=== PATIENT | female | born 1955 | race Caucasian/White ===

== ENCOUNTER 2016-12-31 10:33 | Observation (INO) | payer MEDICARE, OTHER ==
[~2016-12-31] VITALS: Ht 157.5 cm; Wt 77.3 kg
[2016-12-31] VITALS (9 sets, daily range): BP systolic 107–147; BP diastolic 58–84; PULSE 67–110; RESP 16–21; TEMP 97.5–98.8; O2SAT 93–99
[~2016-12-31 10:33] MED LIST: ALBU0.086 NEB; ALBU8I INH; AMLO5TAB22 PO; ATOR20TA PO; CLON.5 PO; GABA600T PO; GLYB1TAB51 PO; MAGN500T4 PO; METF-324 PO; NITR.4 SL; PERC5TAB12 PO; PROT40TA PO; ROPI.25 PO; TOPR25TA2 PO; Z.0.OXYGEN INH
[2016-12-31] MEDS ORDERED: SODIUM CHLORIDE 0.9% FLUSH 5 ML FLUSH IVF PRN ×2 (11:00→15:00)
[2016-12-31] MEDS ORDERED: MORPHINE SULFATE 4 MG/ML INJ IV PUSH ONE ×2 (11:00→13:15)
--- NOTE | 2016-12-31 11:09 | PD ---
HPI Chief Complaint: Chest Pain Time Seen by Provider: 10:52 Travel History International Travel<30 days: No Contact w/Intl Traveler<30days: No Traveled to known affect area: No History of Present Illness HPI This is a 61-year-old female who presents to the emergency department with chest pain that started last evening overnight, constant, worsening throughout today, involving the left side of her test, constant, squeezing, associated with shortness of breath, nausea and diaphoresis. Patient has a history of familial hypertriglyceridemia and she says that all 3 of her brothers have had heart attacks in their 60s. She says she had a normal stress test one year ago in the setting of similar pain. She does have a [id number] smoking history as well as diabetes and high blood pressure. 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) Cardiac Catheterization: Yes Cardiovascular Problems: Yes (MA ) High Cholesterol: Yes Chemotherapy: Yes (2014) Chest Pain: Yes Congestive Heart Failure: No COPD: Yes (2L oxygen at NIGHT) Cerebrovascular Accident: No Diabetes: Yes (TYPE 2 ) Patient Takes Glucophage: Yes (12/29/16) Diminished Hearing: No Endocrine: Yes Gastrointestinal Disorders: Yes (ESOPHAGEAL STRICTURE "DILATED") GERD: Yes Genitourinary: Yes Headaches: No Hepatitis: Yes (HEP C) Hiatal Hernia: No Herniated Disk: Yes Hypertension: Yes Immune Disorder: No Implanted Vascular Access Dvce: Yes (R CHEST POWER PORT) Kidney Stones: No Musculoskeletal: Yes Neurologic: No Psychiatric: Yes (PANIC ATTACKS) Reproductive: No Respiratory: Yes (COPD) Integumentary: Yes (HX: MRSA 2006, CLEAR IN 2014) Immunizations Current: Yes Migraines: No Myocardial Infarction: Yes (2005) Pneumonia: Yes Radiation Therapy: No Renal Failure: No Seizures: No Sickle Cell Disease: No Sleep Apnea: No Thyroid Disease: No Ulcer: Yes Tetanus Vaccination: < 5 Years Influenza Vaccination: Yes Menopausal: Yes : 1 Para: 1 Miscarriage: 0 : 0 Past Surgical History Abdominal Surgery: Yes (appy) AICD: No Appendectomy: Yes Arteriovenous Shunt: No Cardiac Surgery: No Cholecystectomy: No Ear Surgery: No Endocrine Surgery: No Eye Surgery: No Genitourinary Surgery: No Gynecologic Surgery: Yes (lumpectomy-benign left breast, HYSTERECTOMY) Hysterectomy: Yes Insulin Pump: No Joint Replacement: No Neurologic Surgery: No Oral Surgery: No Pacemaker: No Thoracic Surgery: Yes (LEFT UPPER LOBECTOMY) Other Surgery: Yes (LEFT BREAST LUMPECTOMY) Social History Alcohol Use: No Tobacco Use: No Substance Use: No Allergies-Medications (Allergen,Severity, Reaction): Coded Allergies: *MDRO Multi-Drug Resistant Organism (Verified Allergy, Unknown, 12/31/16) MRSA patient reports history from 2006 MRSA PCR Screen negative 07/04/15. Reported Meds & Prescriptions Reported Meds & Active Scripts Active Reported Ventolin Hfa 18 GM Inh (Albuterol Sulfate) 90 Mcg/Act Aer 2 Puff INH Q4-6H PRN Ropinirole 0.5 Mg Tab 0.5 Mg PO HS PRN Quetiapine (Quetiapine Fumarate) 25 Mg Tab 50-75 Mg PO HS Pantoprazole (Pantoprazole Sodium) 40 Mg Tab 40 Mg PO DAILY PRN Percocet (Oxycodone-Acetaminophen) 5-325 mg Tab 1 Tab PO Q5-6HR PRN Morphine ER (Morphine Sulfate) 30 Mg Tab 30 Mg PO Q12HR Nitroglycerin SL (Nitroglycerin) 0.4 Mg Subl 0.4 Mg SL DIRECTED PRN ONE TABLET UNDER THE TONGUE NEEDED FOR CHEST PAIN, MAY REPEAT EVERY FIVE MINUTES FOR A TOTAL OF 3 DOSES OR CALL 911 IF NO RELIEF Multi Vitamin (Multiple Vitamin) 1 Tab Tab 1 Tab PO DAILY Metoprolol Tartrate 50 Mg Tab 50 Mg PO BID Metformin (Metformin HCl) 1,000 Mg Tab 1,000 Mg PO BIDPC With meals Ipratropium Neb (Ipratropium [place]) 0.5 Mg/2.5 Ml Amp 0.5 Mg NEB TID NEB PRN Glimepiride 2 Mg Tab 2 Mg PO BID Gabapentin 600 Mg Tab 600 Mg PO BID Flonase Allergy Relief Nasal [place] (Fluticasone Nasal [place]) 50 Mcg/Act [place] 2 [place] EACH NARE DAILY PRN Fenofibrate 145 Mg Tab 145 Mg PO DAILY Clonazepam 0.5 Mg Tab 0.5 Mg PO HS Calcitonin ([place]) Nasal [place] (Calcitonin [place]) 200 Units/Act Soln 1 [place] NASAL DAILY ALTERNATE NARE Alternate nostrils daily. Aspirin DR (Aspirin) 81 Mg Tabdr 81 Mg PO DAILY Amlodipine (Amlodipine Besylate) 5 Mg Tab 5 Mg PO DAILY Albuterol Neb (Albuterol Sulfate) 2.5 Mg/3 Ml Neb 2.5 Mg NEB Q8HR NEB PRN While awake Review of Systems Except as stated in HPI: all other systems reviewed are Neg Physical Exam Narrative GENERAL: Uncomfortable appearing. SKIN: Warm and dry. HEAD: Atraumatic. Normocephalic. EYES: Pupils equal and round. No injection or drainage. ENT: Moist mucous membranes NECK: Trachea midline. CARDIOVASCULAR: Regular rate and rhythm. No murmur appreciated. RESPIRATORY: Clear to auscultation. Breath sounds equal bilaterally. GASTROINTESTINAL: Abdomen soft, non-tender, nondistended. MUSCULOSKELETAL: No obvious deformities. NEUROLOGICAL: Awake and alert. No obvious cranial nerve deficits. Moving all extremities. PSYCHIATRIC: Appropriate mood and affect; insight and judgment normal. Data Data Last Documented VS Vital Signs Date Time Temp Pulse Resp B/P Pulse Ox O2 Delivery O2 Flow Rate FiO2 12/31/16 12:00 96 18 134/78 99 Nasal Cannula 2 12/31/16 10:45 98.5 Orders Electrocardiogram (12/31/16 10:52) Complete Blood Count With Diff (12/31/16 10:52) Comprehensive Metabolic Panel (12/31/16 10:52) Magnesium (Mg) (12/31/16 10:52) Prothrombin Time / Inr (Pt) (12/31/16 10:52) Act Partial Throm Time (Ptt) (12/31/16 10:52) Troponin I (12/31/16 10:52) Chest, Single Ap (12/31/16 10:52) Ecg Monitoring (12/31/16 10:52) Bilateral Bp Monitoring (12/31/16 10:52) Iv Access Insert/Monitor (12/31/16 10:52) Oximetry (12/31/16 10:52) Oxygen Administration (12/31/16 10:52) Sodium Chloride 0.9% Flush (Ns Flush) (12/31/16 11:00) Morphine Inj (Morphine Inj) (12/31/16 11:00) Lipase (12/31/16 10:53) Nitroglycerin 2% Oint (Nitroglycerin 2% (12/31/16 11:15) Ct Pulmonary Angiogram (12/31/16 ) Morphine Inj (Morphine Inj) (12/31/16 13:15) Iohexol 350 Inj (Omnipaque 350 Inj) (12/31/16 14:15) Admit Order (Ed Use Only) (12/31/16 14:49) Labs Laboratory Tests Test 12/31/16 11:00 White Blood Count 10.6 TH/MM3 Red Blood Count 4.85 MIL/MM3 Hemoglobin 15.3 GM/DL Hematocrit 43.9 % Mean Corpuscular Volume 90.5 FL Mean Corpuscular Hemoglobin 31.6 PG Mean Corpuscular Hemoglobin 34.9 % Concent Red Cell Distribution Width 14.1 % Platelet Count 246 TH/MM3 Mean Platelet Volume 8.3 FL Neutrophils (%) (Auto) 61.9 % Lymphocytes (%) (Auto) 27.0 % Monocytes (%) (Auto) 7.2 % Eosinophils (%) (Auto) 3.2 % Basophils (%) (Auto) 0.7 % Neutrophils # (Auto) 6.6 TH/MM3 Lymphocytes # (Auto) 2.9 TH/MM3 Monocytes # (Auto) 0.8 TH/MM3 Eosinophils # (Auto) 0.3 TH/MM3 Basophils # (Auto) 0.1 TH/MM3 CBC Comment DIFF FINAL Differential Comment Prothrombin Time 10.7 SEC Prothromb Time International 1.0 RATIO Ratio Activated Partial 25.0 SEC Thromboplast Time Sodium Level 139 MEQ/L Potassium Level 4.0 MEQ/L Chloride Level 105 MEQ/L Carbon Dioxide Level 26.7 MEQ/L Anion Gap 7 MEQ/L Blood Urea Nitrogen 16 MG/DL Creatinine 0.90 MG/DL Estimat Glomerular Filtration 63 ML/MIN Rate Random Glucose 177 MG/DL Calcium Level 8.8 MG/DL Magnesium Level 1.7 MG/DL Total Bilirubin 0.3 MG/DL Aspartate Amino Transf 16 U/L (AST/SGOT) Alanine Aminotransferase 32 U/L (ALT/SGPT) Alkaline Phosphatase 108 U/L Troponin I LESS THAN 0.02 NG/ML Total Protein 7.0 GM/DL Albumin 3.5 GM/DL Lipase 263 U/L [facility] Medical Decision Making Medical Screen Exam Complete: Yes Emergency Medical Condition: Yes Interpretation(s) Afebrile, tachycardic, normotensive No leukocytosis Electrolytes are reassuring Troponin is normal Lipase is 263 Last 24 hours Impressions Chest X-Ray 12/31/16 1052 Signed Impressions: Service Date/Time: Saturday, December 31, 2016 10:57 - CONCLUSION: No acute disease. Ayo Guardado MD CT Angiography 12/31/16 0000 Signed Impressions: Service Date/Time: Saturday, December 31, 2016 14:11 - CONCLUSION: 1. No evidence for pulmonary embolism. 2. Minimal round glass densities in the anterior right upper lobe and posterior left upper lobe could be infectious or inflammatory. 3. Emphysema with nodules in the right lower lobe measuring 11 x 7 mm and 8 mm. These appear slightly more prominent on current study. 4. Left upper lobectomy. Alin Nguyễn MD Differential Diagnosis Acute coronary syndrome, pulmonary embolism, cancer, pancreatitis Narrative Course Is a 61-year-old female who presents to the emergency department with left- sided chest pain that started last afternoon and has been worsening. EKG demonstrated some ST depressions in V1 through V3. Posterior leads are normal with no sign of posterior myocardial infarction. These ST depressions are new compared to old EKG. She was placed on a monitor and an IV was established. She was given aspirin by EMS. CT pulmonary injury gram was obtained given the patient's history of malignancy which did not demonstrate an etiology of the patient's symptoms. I think the patient requires serial cardiac enzymes and evaluation and the chest pain center given her new EKG findings and description of symptoms. Diagnosis Primary Impression: Chest pain Qualified Code: R07.9 - Chest pain, unspecified type Admitting Information Admitting Physician Requests: Eunice Huynh MD Dec 31, 2016 11:09
[2016-12-31] MEDS ORDERED: NITROGLYCERIN 2% OINT 1 GM PACKET TOPICAL ONE (11:15)
--- NOTE | 2016-12-31 11:26 | RADRPT ---
EXAM DATE/TIME: 12/31/2016 10:57 [facility] COMPARISON: CHEST SINGLE AP, July 08, 2016, 23:19. INDICATIONS : Chest pain. MEDICAL HISTORY : Chronic obstructive pulmonary disease. Carcinoma, lung. Chemotherapy SURGICAL HISTORY : None. ENCOUNTER: Initial ACUITY: 1 day PAIN SCORE: 6/10 LOCATION: Bilateral chest FINDINGS: A single view of the chest demonstrates the lungs to be symmetrically aerated without evidence of mas s, infiltrate or effusion. The cardiomediastinal contours are unremarkable. Osseous structures are intact. There is an old healed left-sided rib fracture. There are postsurgical changes in the left hi lum. There are multiple overlying electrocardiogram leads. There is stable slight blunting of the lef t lateral costophrenic angle. CONCLUSION: No acute disease. Ayo Guardado MD on December 31, 2016 at 11:24 Board Certified Radiologist. This report was verified electronically.
[2016-12-31 11:28] LABS: AUTOMATED NEUTROPHIL # 6.6 TH/MM3 (1.8-7.7); BASOPHIL # 0.1 TH/MM3 (0-0.2); BASOPHIL % 0.7 % (0.0-2.0); EOSINOPHIL # 0.3 TH/MM3 (0-0.4); EOSINOPHIL % 3.2 % (0.0-4.0); HEMATOCRIT 43.9 % (35.0-46.0); HEMO FLAGS DIFF FINAL; LYMPHOCYTE # 2.9 TH/MM3 (1.0-4.8); MEAN CELL VOLUME 90.5 FL (80.0-100.0); MEAN CORPUSCULAR HEMOGLOBIN 31.6 PG (27.0-34.0); MEAN CORPUSCULAR HGB CONC 34.9 % (32.0-36.0); MONO % 7.2 % (0.0-8.0); NEUT % 61.9 % (16.0-70.0); PLATELET COUNT 246 TH/MM3 (150-450); RED BLOOD COUNT 4.85 MIL/MM3 (4.00-5.30); RED CELL DISTRIBUTION WIDTH 14.1 % (11.6-17.2); WHITE BLOOD COUNT 10.6 TH/MM3 (4.0-11.0)
[2016-12-31 11:39] LABS: PROTHROMBIN TIME - PATIENT 10.7 SEC (9.8-11.6)
[2016-12-31 11:45] LABS: ANION GAP 7 MEQ/L (5-15); AST (GOT) 16 U/L (15-37); BICARBONATE 26.7 MEQ/L (21.0-32.0); BLOOD UREA NITROGEN 16 MG/DL (7-18); CHLORIDE 105 MEQ/L (98-107); GLOMERULAR FILTRATION RATE 63 ML/MIN (>89); MAGNESIUM 1.7 MG/DL (1.5-2.5); SODIUM (NA) 139 MEQ/L (136-145)
[2016-12-31] MEDS ORDERED: ASPI81TA5 PO (11:45)
[2016-12-31] MEDS ORDERED: ALBU0.08 NEB (11:45)
[2016-12-31] MEDS ORDERED: AMLO5TAB2 PO (11:45)
[2016-12-31 11:50] LABS: ALKALINE PHOSPHATASE 108 U/L (45-117); ALT (GPT) 32 U/L (10-53); TOTAL BILIRUBIN ADULT 0.3 MG/DL (0.2-1.0)
[2016-12-31] MEDS ORDERED: CALC200S NASAL (11:50)
[2016-12-31] MEDS ORDERED: CLON0.5T PO (11:52)
[2016-12-31] MEDS ORDERED: FLUT1SPR5 EACH NARE (11:54)
[2016-12-31] MEDS ORDERED: FENO145T2 PO (11:54)
[2016-12-31] MEDS ORDERED: GABA600T PO (12:03)
[2016-12-31] MEDS ORDERED: IPRA0.02 NEB (12:03)
[2016-12-31] MEDS ORDERED: GLIM2TAB PO (12:03)
[2016-12-31] MEDS ORDERED: METF1000 PO (12:03)
[2016-12-31] MEDS ORDERED: MULT-135 PO (12:11)
[2016-12-31] MEDS ORDERED: MORP1TAB25 PO (12:11)
[2016-12-31] MEDS ORDERED: METO50TA PO (12:11)
[2016-12-31] MEDS ORDERED: NITR1SUB3 SL (12:11)
[2016-12-31] MEDS ORDERED: PANT40TA3 PO (12:16)
[2016-12-31] MEDS ORDERED: QUET1TAB7 PO (12:16)
[2016-12-31] MEDS ORDERED: PERC5TAB12 PO (12:16)
[2016-12-31] MEDS ORDERED: VENTAER INH (12:18)
[2016-12-31] MEDS ORDERED: ROPI0.5T PO (12:18)
[2016-12-31] MEDS ORDERED: IOHEXOL 350 MG/ML 10 ML VIAL (for RAD DIAG) IV ONE (14:15)
--- NOTE | 2016-12-31 14:42 | RADRPT ---
EXAM DATE/TIME: 12/31/2016 14:11 [facility] COMPARISON: CT PULMONARY ANGIOGRAM, July 03, 2015, 19:48. INDICATIONS : Left upper chest pain. Short of breath. IV CONTRAST: 75 cc Omnipaque 350 (iohexol) IV RADIATION DOSE: 23.21 CTDIvol (mGy) MEDICAL HISTORY : Cardiovascular disease. Diabetes mellitus type 2. Carcinoma, lung.Hypertension. Hepatitis C. SURGICAL HISTORY : Appendectomy. Hysterectomy.Lobectomy. ENCOUNTER: Initial ACUITY: 1 day PAIN SCALE: 8/10 LOCATION: Left chest TECHNIQUE: Volumetric scanning of the chest was performed using a pulmonary embolism protocol MIP images were re constructed. Using automated exposure control and adjustment of the mA and/or kV according to patien t size, radiation dose was kept as low as reasonably achievable to obtain optimal diagnostic quality images. FINDINGS: PULMONARY ARTERIES: No filling defects are seen in the pulmonary arteries through the segmental level. LUNGS: There is no consolidation or pneumothorax . Nodular density in the right lower lobe abutting the post erior pleura measures 11 x 7 mm. Adjacent nodule measures 8 mm. There is mild emphysema. Posterior to changes of left upper lobectomy. Minimal ground glass densities in the anterior right upper lobe. PLEURAE: There is no pleural thickening or pleural effusion. MEDIASTINUM: There is good visualization of the great vessels of the middle mediastinum. No evidence of mediastin al or hilar adenopathy/mass. MUSCULOSKELETAL: Within normal limits for patient age. MISCELLANEOUS: The visualized upper abdominal organs demonstrate no acute abnormality. CONCLUSION: 1. No evidence for pulmonary embolism. 2. Minimal round glass densities in the anterior right upper lobe and posterior left upper lobe could be infectious or inflammatory. 3. Emphysema with nodules in the right lower lobe measuring 11 x 7 mm and 8 mm. These appear slightly more prominent on current study. 4. Left upper lobectomy. Alin Nguyễn MD on December 31, 2016 at 14:36 Board Certified Radiologist. This report was verified electronically.
[2016-12-31] MEDS ORDERED: NITROGLYCERIN 0.4 MG SL 25 TABS/BTL SL PRN (15:00)
[2016-12-31] MEDS ORDERED: ONDANSETRON HCL 4 MG/2 ML VIAL IV PRN (15:00)
[2016-12-31] MEDS ORDERED: ACETAMINOPHEN 500 MG CPLT PO PRN (15:00)
[2016-12-31] MEDS ORDERED: DEXTROSE 50% IN WATER 50 ML VIAL(D50) IV PUSH PRN (16:30)
[2016-12-31] MEDS ORDERED: GLUCAGON 1 MG/ML VIAL OTHER PRN (16:30)
[2016-12-31 16:37] LABS: CREATINE KINASE 50 U/L (26-192)
[2016-12-31] MEDS ORDERED: PANTOPRAZOLE SOD 40 MG DELAYED RELEASE TAB PO PRN (16:45)
[2016-12-31] MEDS ORDERED: RESP: ALBUTEROL 2.5 MG/3 ML NEB (PRN) NEB (17:15)
[2016-12-31] MEDS ORDERED: RESP: IPRATROPIUM 0.5 MG/2.5 ML NEB NEB PRN (17:15)
[2016-12-31] MEDS: MULTIVITAMIN TAB PO SCH (17:27)
[2016-12-31] MEDS: FENOFIBRATE 145 MG TAB PO SCH (17:27)
[2016-12-31] MEDS: amLODIPine BESYLATE 5 MG TAB PO SCH (17:27)
[2016-12-31] MEDS ORDERED: oxyCODONE/ACETAMINOPHEN 5 MG/325 MG TAB PO PRN (17:45)
--- NOTE | 2016-12-31 17:54 | HHI.HP ---
HPI Primary Care Physician Donnell Paul, PhD, MD Chief Complaint Chest pain History of Present Illness 61-year-old female presents with chest discomfort that started last p.m. Was unable to sleep due to chest pain. Continue to have chest discomfort throughout morning then developed a quick cramp-like squeeze in her left anterior chest and under her breasts. Severity was a 10 out of 10. She took 2 nitroglycerin tablets and 2 baby aspirin and called EMS. Associated symptoms included nausea, no shortness of breath or diaphoresis. Total duration of severe chest pain lasted 20 minutes. Continues to have discomfort rated 6 out of 10. No known precipitating factors or relieving factors. Nitroglycerin did not help. Breathing makes pain worse as well as certain movements. Similar chest pain and had a stress test in June 2016 which was unremarkable. Review of Systems General: Fatigue since October. [place] weak today. No fever or chills. Treated for pneumonia in October. No recent illness or change in appetite HEENT: No TAVARES, no vision changes, no nasal congestion or drainage, no dysphasia CV: Chest discomfort as stated above. Continues to have chest discomfort rated 6 out of 10. Denies palpitations, intermittent leg pain with walking, poor dizziness RESP: Lung cancer in remission, left upper lobectomy. Home O2/2 L half daily at bedtime and when necessary. No SOB, cough, wheeze, hemoptysis GI: No nausea, vomiting. Reports diarrhea since Thursday, 4 loose stools today, was seen in urgent care and given how patient stool kit to complete. She is concerned about c-diff. Denies abdominal pain or distention, melena, blood in the stool. No change in appetite, no unintentional weight gain or weight loss : No dysuria, urgency, frequency EXT: No lower leg edema, no parathesias MS: No discomfort or change in ROM NEURO: No change in memory, dizziness, difficulty with balance, LOC, motor/ sensory deficits PSYCH: No anxiety, depression SKIN: No rashes, no concerning lesions Past Family Social History Allergies: Coded Allergies: *MDRO Multi-Drug Resistant Organism (Verified Allergy, Unknown, 12/31/16) MRSA patient reports history from 2006 MRSA PCR Screen negative 07/04/15. Past Medical History Diabetes2 GERD Lung cancerremission 09/28 Pulmonary embolism Hypertension Hyperlipidemia COPDhome O2 at 2 L daily at bedtime and when necessary Anxiety and depression Bipolar Diverticulitis Cervical cancer 1979 Esophageal stricture with dilatation Diverticulitis Right wrist fracture Past Surgical History Left upper lobectomy Appendectomy Hysterectomy In the lobectomy of her left breast Reported Medications Reported Meds & Active Scripts Active Reported Ventolin Hfa 18 GM Inh (Albuterol Sulfate) 90 Mcg/Act Aer 2 Puff INH Q4-6H PRN Ropinirole 0.5 Mg Tab 0.5 Mg PO HS PRN Quetiapine (Quetiapine Fumarate) 25 Mg Tab 50-75 Mg PO HS Pantoprazole (Pantoprazole Sodium) 40 Mg Tab 40 Mg PO DAILY PRN Percocet (Oxycodone-Acetaminophen) 5-325 mg Tab 1 Tab PO Q5-6HR PRN Morphine ER (Morphine Sulfate) 30 Mg Tab 30 Mg PO Q12HR Nitroglycerin SL (Nitroglycerin) 0.4 Mg Subl 0.4 Mg SL DIRECTED PRN ONE TABLET UNDER THE TONGUE NEEDED FOR CHEST PAIN, MAY REPEAT EVERY FIVE MINUTES FOR A TOTAL OF 3 DOSES OR CALL 911 IF NO RELIEF Multi Vitamin (Multiple Vitamin) 1 Tab Tab 1 Tab PO DAILY Metoprolol Tartrate 50 Mg Tab 50 Mg PO BID Metformin (Metformin HCl) 1,000 Mg Tab 1,000 Mg PO BIDPC With meals Ipratropium Neb (Ipratropium [place]) 0.5 Mg/2.5 Ml Amp 0.5 Mg NEB TID NEB PRN Glimepiride 2 Mg Tab 2 Mg PO BID Gabapentin 600 Mg Tab 600 Mg PO BID Flonase Allergy Relief Nasal [place] (Fluticasone Nasal [place]) 50 Mcg/Act [place] 2 [place] EACH NARE DAILY PRN Fenofibrate 145 Mg Tab 145 Mg PO DAILY Clonazepam 0.5 Mg Tab 0.5 Mg PO HS Calcitonin ([place]) Nasal [place] (Calcitonin [place]) 200 Units/Act Soln 1 [place] NASAL DAILY ALTERNATE NARE Alternate nostrils daily. Aspirin DR (Aspirin) 81 Mg Tabdr 81 Mg PO DAILY Amlodipine (Amlodipine Besylate) 5 Mg Tab 5 Mg PO DAILY Albuterol Neb (Albuterol Sulfate) 2.5 Mg/3 Ml Neb 2.5 Mg NEB Q8HR NEB PRN While awake Active Ordered Medications Current Medications Medications (Trade) Dose Ordered Sig/Ney Route Start Time Stop Time Status Last Admin (Tylenol) 500 mg Q4H PRN PO 12/31/16 15:00 (Zofran Inj) 4 mg Q6H PRN IV 12/31/16 15:00 (Nitrostat Sl) 0.4 mg Q5M PRN SL 12/31/16 15:00 (Aspirin) 325 mg DAILY PO 01/01/17 09:00 (D50w (Vial) Inj) 25 ml UNSCH PRN IV PUSH 12/31/16 16:30 (Glucagon Inj) 1 mg UNSCH PRN OTHER 12/31/16 16:30 (Norvasc) 5 mg DAILY PO 12/31/16 17:00 12/31/16 17:27 (Tricor) 145 mg DAILY PO 12/31/16 17:00 12/31/16 17:27 (Neurontin) 600 mg BID PO 12/31/16 21:00 (Theragran) 1 tab DAILY PO 12/31/16 17:00 12/31/16 17:27 (Protonix) 40 mg DAILY PRN PO 12/31/16 16:45 (Lopressor) 50 mg BID PO 12/31/16 21:00 (Requip) 0.5 mg HS PRN PO 12/31/16 16:45 (SEROquel) 50 mg HS PO 12/31/16 21:00 Family History 1 brother at age 61 from a heart attack, another brother from massive CVA at age 61, another brother is living and has a pacemaker and defibrillator. Mother had COPD, hypertension and diabetes she has . Father at age 37 from a motor vehicle accident. Social History She is a remote smoker quit May 2015. He smokes since age 15 1-1/2 pack of cigarettes until quitting. She denies any alcohol or illegal drug use. Has known hypertension, diabetes, and hyperlipidemia stating her triglyceride level is always elevated. She is a and is disabled. PAST CARDIAC TESTING Lexiscan completed 07/10/16 was negative for ischemia, ejection fraction greater than 70% [place] scan completed 07/04/16 was negative for ischemia Has never had a cardiac catheterization. Follows with Dr. Krishna. Physical Exam Vital Signs Vital Signs Date Time Temp Pulse Resp B/P Pulse Ox O2 Delivery O2 Flow Rate FiO2 12/31/16 16:00 110 18 147/78 97 Nasal Cannula 2 12/31/16 14:00 106 18 107/61 97 Nasal Cannula 2 12/31/16 12:00 96 18 134/78 99 Nasal Cannula 2 12/31/16 10:55 97 Nasal Cannula 2 12/31/16 10:45 108 18 125/69 97 Nasal Cannula 2 12/31/16 10:45 98.5 105 18 135/73 95 12/31/16 10:45 106 18 96 Room Air Physical Exam GENERAL: Alert WN, WD, NAD, pleasant, female who appears older than her stated age HEAD: NC, AT EYES: Sclera clear, conjunctiva without injection, pupils equal and round ENT: Mucous membranes pink and moist NECK: Supple, no masses, trachea midline CV: Tachycardic regular rhythm, without murmur, rub, gallop, no JVD, S1-S2 no S3 -S4. No carotid bruits RESP: Clear lungs throughout bilateral, absent breath sounds LAVELL. no crackles, wheeze, rhonchi, symmetrical chest rise, nonlabored, able to speak in full sentences, O2 placed 2 L nasal cannula in place ABD: Soft, mildly tender with palpation left upper quadrant, ND, no masses, positive bowel tones, negative Short's BACK: No CVAT, no scoliosis EXT: Pulses +24, no dependent edema MS: Normal tone 4 extremities, nontender, no obvious deformities, full range of motion NEURO: CN II through CN XII grossly intact, motor strength 5/5, gait WNL PSYCH: A+O 3, pleasant affect, appropriate speech, appropriate mood and affect , insight and judgment SKIN: Normal turgor, normal texture, no lesions, no rashes Laboratory Laboratory Tests Test 12/31/16 12/31/16 11:00 15:00 White Blood Count 10.6 Red Blood Count 4.85 Hemoglobin 15.3 Hematocrit 43.9 Mean Corpuscular Volume 90.5 Mean Corpuscular Hemoglobin 31.6 Mean Corpuscular Hemoglobin 34.9 Concent Red Cell Distribution Width 14.1 Platelet Count 246 Mean Platelet Volume 8.3 Neutrophils (%) (Auto) 61.9 Lymphocytes (%) (Auto) 27.0 Monocytes (%) (Auto) 7.2 Eosinophils (%) (Auto) 3.2 Basophils (%) (Auto) 0.7 Neutrophils # (Auto) 6.6 Lymphocytes # (Auto) 2.9 Monocytes # (Auto) 0.8 Eosinophils # (Auto) 0.3 Basophils # (Auto) 0.1 CBC Comment DIFF FINAL Differential Comment Prothrombin Time 10.7 Prothromb Time International 1.0 Ratio Activated Partial 25.0 Thromboplast Time Sodium Level 139 Potassium Level 4.0 Chloride Level 105 Carbon Dioxide Level 26.7 Anion Gap 7 Blood Urea Nitrogen 16 Creatinine 0.90 Estimat Glomerular Filtration 63 Rate Random Glucose 177 Calcium Level 8.8 Magnesium Level 1.7 Total Bilirubin 0.3 Aspartate Amino Transf 16 (AST/SGOT) Alanine Aminotransferase 32 (ALT/SGPT) Alkaline Phosphatase 108 Troponin I LESS THAN 0.02 LESS THAN 0.02 Total Protein 7.0 Albumin 3.5 Lipase 263 Total Creatine Kinase 50 Result Diagram: 12/31/16 1100 12/31/16 1100 Imaging Last Impressions Chest X-Ray 12/31/16 1052 Signed Impressions: Service Date/Time: Saturday, December 31, 2016 10:57 - CONCLUSION: No acute disease. Ayo Guardado MD CT Angiography 12/31/16 0000 Signed Impressions: Service Date/Time: Saturday, December 31, 2016 14:11 - CONCLUSION: 1. No evidence for pulmonary embolism. 2. Minimal round glass densities in the anterior right upper lobe and posterior left upper lobe could be infectious or inflammatory. 3. Emphysema with nodules in the right lower lobe measuring 11 x 7 mm and 8 mm. These appear slightly more prominent on current study. 4. Left upper lobectomy. Alin Nguyễn MD Course First EKG Normal sinus rhythm, left axis deviation, Q waves in lead 3 and aVF, nonspecific ST changes Assessment and Plan Assessment and Plan #1 Chest painpatient has been admitted to the chest pain center. She will undergo serial EKGs, cardiac enzymes, and monitored overnight. She was seen and evaluated by Dr. Louie Phipps. Discussed with patient that if she is ruled out she will complete a chemical stress test in the a.m. She is agreeable to this plan of care. Further disposition to follow results of EKGs, labs, and possible stress test. #2 DiabetesSSI. Hold oral anti-glycemic #3 COPDrespiratory treatments every 2 hours when necessary, O2 2 L nasal cannula as needed for shortness of breath #4 Hypertriglyceridemiacontinue fenofibrate, upon discharge may add fish oil 1000 mg 3 times a day #5 Hypertensionreorder amlodipine and metoprolol, monitor overnight #6 Chronic painreorder morphine extended release and when necessary Percocet Code Status Full code Siobhan Gallardo Dec 31, 2016 17:54
[2016-12-31 18:59] LABS: CREATINE KINASE 50 U/L (26-192)
[2016-12-31] MEDS ORDERED: clonazePAM 0.5 MG TAB PO SCH (21:00)
[2016-12-31] MEDS ORDERED: QUEtiapine FUMARATE 25 MG TAB PO SCH (21:00)
[2016-12-31] MEDS: SODIUM CHLORIDE 0.9% FLUSH 5 ML FLUSH IVF SCH (22:16)
[2016-12-31] MEDS: METOPROLOL TARTRATE 50 MG TAB PO SCH (22:17)
[2016-12-31] MEDS: GABAPENTIN 300 MG CAP PO SCH (22:17)
[2016-12-31] MEDS: MORPHINE SULFATE 30 MG CONTROLLED RELEASE TAB PO SCH (22:18)
[2016-12-31] MEDS: INSULIN ASPART SUPPLEMENTAL SCALE SQ SCH (22:20)
[2017-01-01] VITALS (7 sets, daily range): BP systolic 107–116; BP diastolic 63–73; PULSE 71–82; RESP 19–22; TEMP 97.5–98.8; O2SAT 93–99
[2017-01-01] MEDS: INSULIN ASPART SUPPLEMENTAL SCALE SQ SCH (06:47)
[2017-01-01] MEDS ORDERED: REGADENOSON INJ 0.4 MG/5 ML SYR ONE (08:56)
[2017-01-01] MEDS ORDERED: ASPIRIN 325 MG TAB PO SCH (09:00)
[2017-01-01] MEDS ORDERED: AMINOPHYLLINE INJ 250 MG/10 ML VIAL ONE (10:04)
[2017-01-01] MEDS: MORPHINE SULFATE 30 MG CONTROLLED RELEASE TAB PO SCH (10:45)
[2017-01-01] MEDS: METOPROLOL TARTRATE 50 MG TAB PO SCH (10:45)
[2017-01-01] MEDS: FENOFIBRATE 145 MG TAB PO SCH (10:45)
[2017-01-01] MEDS: SODIUM CHLORIDE 0.9% FLUSH 5 ML FLUSH IVF SCH (10:45)
[2017-01-01] MEDS: amLODIPine BESYLATE 5 MG TAB PO SCH (10:45)
[2017-01-01] MEDS: MULTIVITAMIN TAB PO SCH (10:45)
[2017-01-01] MEDS: GABAPENTIN 300 MG CAP PO SCH (10:45)
--- NOTE | 2017-01-01 10:54 | RADRPT ---
EXAM DATE/TIME: 01/01/2017 08:43 [facility] COMPARISON: No previous studies available for comparison. INDICATIONS : Left chest pain with dyspnea, nausea and diaphoresis for 2 days. Angina. DOSE: 27.2 mCi Tc99m Myoview at stress. 8.6 mCi Tc99m Myoview at rest. 0.4 mg Lexiscan STRESS SYMPTOMS: Dyspnea, heart racing, and headache. MEDICATIONS: 1.) 100 mg Aminophylline IV EJECTION FRACTION: 62% MEDICAL HISTORY : Myocardial infarction. Diabetes mellitus type 2. Chronic obstructive pulmonary disease. GERD. SURGICAL HISTORY : Hysterectomy. Appendectomy. ENCOUNTER: Initial ACUITY: 2 days PAIN SCALE: 6/10 LOCATION: Left chest TECHNIQUE: The patient underwent pharmacologic stress with infusion of prescribed dose. Continuous ECG tracing was monitored during stress. Gated SPECT imaging was performed after stress and conventional SPECT i maging was performed at rest. The examination was performed on a SPECT/CT scanner, both attenuation and non-corrected datasets were reviewed. FINDINGS: DISTRIBUTION: The maximum perfused segment at stress is in the anterior wall. PERFUSION STUDY: The pattern of perfusion at stress is within normal limits. GATED STUDY: There is intact wall motion and thickening without hypokinetic or dyskinetic segments. CONCLUSION: 1. No significant reversibility to suggest ischemia. 2. Normal wall motion with ejection fraction 62%. RISK CATEGORY: Low (<1% Annual Mortality Rate) Mendez Benito MD on January 01, 2017 at 10:48 Board Certified Radiologist. This report was verified electronically.
--- NOTE | 2017-01-01 11:23 | HHI.DCPOC ---
Discharge Care Plan Diagnosis: (1) Atypical chest pain (2) DM type 2 (diabetes mellitus, type 2) Goals to Promote Your Health * To prevent worsening of your condition and complications * To maintain your health at the optimal level Directions to Meet Your Goals Take your medications as prescribed Follow your dietary instruction Follow activity as directed Keep your appointments as scheduled Take your immunizations and boosters as scheduled If your symptoms worsen call your PCP, if no PCP go to Urgent Care Center or Emergency Room Smoking is Dangerous to Your Health. Avoid second hand smoke Call the 24-hour hour crisis hotline for domestic abuse at Siobhan Gallardo Jan 01, 2017 11:23
--- NOTE | 2017-01-02 16:54 | EKG ---
Date Performed: 12/31/2016 Time Performed: 16:21:54 PTAGE: 61 years EKG: SINUS TACHYCARDIA ST DEVIATION AND MODERATE T-WAVE ABNORMALITY, CONSIDER ANTERIOR ISCHEMIA ABNORMAL ECG PREVIOUS TRACING : 12/31/2016 11.10 Since previous tracing, no significant change noted DOCTOR: Louie Phipps Interpretating Date/Time 01/02/2017 16:51:45
--- NOTE | 2017-01-02 16:54 | EKG ---
Date Performed: 12/31/2016 Time Performed: 18:37:42 PTAGE: 61 years EKG: Sinus rhythm ST DEVIATION AND MODERATE T-WAVE ABNORMALITY, CONSIDER ANTERIOR ISCHEMIA ABNORMAL ECG PREVIOUS TRACING : 12/31/2016 16.21 Since previous tracing, no significant change noted DOCTOR: Louie Phipps Interpretating Date/Time 01/02/2017 16:51:07
--- NOTE | 2017-01-02 16:57 | EKG ---
Date Performed: 12/31/2016 Time Performed: 11:10:39 PTAGE: 61 years EKG: SINUS TACHYCARDIA ST DEVIATION AND MODERATE T-WAVE ABNORMALITY, CONSIDER ANTERIOR ISCHEMIA ABNORMAL ECG PREVIOUS TRACING : 12/31/2016 10.49 Since previous tracing, no significant change noted DOCTOR: Louie Phipps Interpretating Date/Time 01/05/2017 09:30:46
--- NOTE | 2017-01-02 16:57 | EKG ---
Date Performed: 12/31/2016 Time Performed: 10:49:34 PTAGE: 61 years EKG: SINUS TACHYCARDIA ST DEVIATION AND MODERATE T-WAVE ABNORMALITY, CONSIDER ANTERIOR ISCHEMIA ABNORMAL ECG PREVIOUS TRACING : 07/09/2016 04.10 Since previous tracing, no significant change noted DOCTOR: Louie Phipps Interpretating Date/Time 01/02/2017 16:54:10
--- NOTE | 2017-01-02 17:13 | TR ---
Date Performed: 01/01/2017 Time Performed: 09:18:13 DOCTOR: Louie Phipps DRUG LIST: CLINICAL HISTORY: REASON FOR TEST: Angina REASON FOR ENDING: OBSERVATION: CONCLUSION: Lexiscan stress test was performed under standard four minute protocol. Radionuclid e was injected one minute prior to ending the test. No electrocardiographic abormalities were present to suggest ischemia. Nuclear imaging and interpretation are pending. COMMENTS:
== END 2017-01-01 12:38 | disposition home or self-care (01) ==
LOC: NEPE 10:33 → NEDA 14:50 → NEPHCDU 18:21
PROVIDERS: ADMIT Internal Medicine Cardiovascular Disease; ATTEND Internal Medicine Cardiovascular Disease
DX: R07.89 Other chest pain (principal); I10 Essential (primary) hypertension; J44.9 Chronic obstructive pulmonary disease, unspecified; E11.9 Type 2 diabetes mellitus without complications; K21.9 Gastro-esophageal reflux disease without esophagitis; E78.1 Pure hyperglyceridemia; E78.00 Pure hypercholesterolemia, unspecified; F31.9 Bipolar disorder, unspecified; I25.2 Old myocardial infarction; G89.29 Other chronic pain; Z86.711 Personal history of pulmonary embolism; Z85.118 Personal history of other malignant neoplasm of bronchus and lung; Z85.41 Personal history of malignant neoplasm of cervix uteri; Z86.14 Personal history of Methicillin resistant Staphylococcus aureus infection; Z87.891 Personal history of nicotine dependence; Z79.84 Long term (current) use of oral hypoglycemic drugs
CPT/HCPCS: 71010; 71275; 78452; 80053; 82550; 82948; 83690; 83735; 84484; 85025; 85610; 85730; 93005; 93017; 94664; 96374; 96376; 99285; A9502; G0378; J0280; J1815; J2270; J2785; J7644; Q9967

== ENCOUNTER 2017-03-16 10:30 | Emergency (ER) | payer MEDICARE ==
[~2017-03-16] VITALS: Ht 154.9 cm; Wt 73.0 kg
[~2017-03-16 10:30] MED LIST changes: +ALBU0.08 NEB; -ALBU0.086 NEB; -ALBU8I INH; +AMLO5TAB2 PO; -AMLO5TAB22 PO; +ASPI81TA5 PO; -ATOR20TA PO; +CALC200S NASAL; -CLON.5 PO; +CLON0.5T PO; +FENO145T2 PO; +FLUT1SPR5 EACH NARE; +GLIM2TAB PO; -GLYB1TAB51 PO; +IPRA0.02 NEB; -MAGN500T4 PO; -METF-324 PO; +METF1000 PO; +METO50TA PO; +MORP1TAB25 PO; +MULT-135 PO; -NITR.4 SL; +NITR1SUB3 SL; +PANT40TA3 PO; -PROT40TA PO; +QUET1TAB7 PO; -ROPI.25 PO; +ROPI0.5T PO; -TOPR25TA2 PO; +VENTAER INH; -Z.0.OXYGEN INH
[2017-03-16 10:35] VITALS: BP 140/78; PULSE 85; RESP 22; TEMP 97.4; O2SAT 98
[2017-03-16 10:40] VITALS: O2SAT 98
--- NOTE | 2017-03-16 10:59 | PD ---
HPI Chief Complaint: Chest Pain Time Seen by Provider: 10:41 Travel History International Travel<30 days: No Contact w/Intl Traveler<30days: No Traveled to known affect area: No History of Present Illness HPI The patient was seen and examined in the presence of the nurse. This highly anxious patient complains of many things. She has nausea and vomiting and diarrhea and chronic back pain and left upper chest pain and abdominal cramps. She is hyperventilating. His room air saturation of 100%. Symptoms severity is moderate. No alleviating factors. Duration one day. 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) Cardiac Catheterization: No Cardiovascular Problems: Yes High Cholesterol: Yes Chemotherapy: Yes (2014) Chest Pain: Yes Congestive Heart Failure: No COPD: Yes (2L oxygen at NIGHT) Cerebrovascular Accident: No Diabetes: Yes Patient Takes Glucophage: No Diminished Hearing: No Endocrine: Yes Gastrointestinal Disorders: Yes (ESOPHAGEAL STRICTURE "DILATED") GERD: Yes Genitourinary: Yes Headaches: No Hepatitis: Yes (HEP C) Hiatal Hernia: No Herniated Disk: Yes Hypertension: Yes Immune Disorder: No Implanted Vascular Access Dvce: Yes (R CHEST POWER PORT) Kidney Stones: No Musculoskeletal: Yes Neurologic: No Psychiatric: Yes (PANIC ATTACKS) Reproductive: No Respiratory: Yes (COPD) Integumentary: Yes (HX: MRSA 2006, CLEAR IN 2014) Immunizations Current: Yes Migraines: No Myocardial Infarction: Yes (2005) Pneumonia: Yes Radiation Therapy: No Renal Failure: No Seizures: No Sickle Cell Disease: No Sleep Apnea: No Thyroid Disease: No Ulcer: Yes Influenza Vaccination: Yes ?: Not Menopausal: Yes : 1 Para: 1 Miscarriage: 0 : 0 Past Surgical History Abdominal Surgery: Yes (appy) AICD: No Appendectomy: Yes Arteriovenous Shunt: No Cardiac Surgery: No Cholecystectomy: No Coronary Artery Bypass Graft: No Ear Surgery: No Endocrine Surgery: No Eye Surgery: No Genitourinary Surgery: No Gynecologic Surgery: Yes (lumpectomy-benign left breast, HYSTERECTOMY) Hysterectomy: Yes Insulin Pump: No Joint Replacement: No Neurologic Surgery: No Oral Surgery: No Pacemaker: No Thoracic Surgery: Yes (LEFT UPPER LOBECTOMY) Other Surgery: Yes (LEFT BREAST LUMPECTOMY) Family History Family Myocardial Infarction: Yes (2 brothers) Social History Alcohol Use: No Tobacco Use: Yes (4 CIGARETTES DAILY) Substance Use: No Allergies-Medications (Allergen,Severity, Reaction): Coded Allergies: *MDRO Multi-Drug Resistant Organism (Verified Allergy, Unknown, 12/31/16) MRSA patient reports history from 2006 MRSA PCR Screen negative 07/04/15. Reported Meds & Prescriptions Reported Meds & Active Scripts Active Reported Ventolin Hfa 18 GM Inh (Albuterol Sulfate) 90 Mcg/Act Aer 2 Puff INH Q4-6H PRN Quetiapine (Quetiapine Fumarate) 25 Mg Tab 50-75 Mg PO HS Pantoprazole (Pantoprazole Sodium) 40 Mg Tab 40 Mg PO DAILY PRN Percocet (Oxycodone-Acetaminophen) 5-325 mg Tab 1 Tab PO Q5-6HR PRN Morphine ER (Morphine Sulfate) 30 Mg Tab 30 Mg PO Q12HR Nitroglycerin SL (Nitroglycerin) 0.4 Mg Subl 0.4 Mg SL DIRECTED PRN ONE TABLET UNDER THE TONGUE NEEDED FOR CHEST PAIN, MAY REPEAT EVERY FIVE MINUTES FOR A TOTAL OF 3 DOSES OR CALL 911 IF NO RELIEF Multi Vitamin (Multiple Vitamin) 1 Tab Tab 1 Tab PO DAILY Metoprolol Tartrate 50 Mg Tab 50 Mg PO BID Ipratropium Neb (Ipratropium [place]) 0.5 Mg/2.5 Ml Amp 0.5 Mg NEB TID NEB PRN Glimepiride 2 Mg Tab 2 Mg PO BID Gabapentin 600 Mg Tab 600 Mg PO BID Flonase Nasal [place] (Fluticasone Nasal [place]) 50 Mcg/Act [place] 2 [place] EACH NARE DAILY PRN Fenofibrate 145 Mg Tab 145 Mg PO DAILY Clonazepam 0.5 Mg Tab 0.5 Mg PO HS Calcitonin ([place]) Nasal [place] (Calcitonin [place]) 200 Units/Act Soln 1 [place] NASAL DAILY ALTERNATE NARE Alternate nostrils daily. Aspirin DR (Aspirin) 81 Mg Tabdr 81 Mg PO DAILY Amlodipine (Amlodipine Besylate) 5 Mg Tab 5 Mg PO DAILY Albuterol Neb (Albuterol Sulfate) 2.5 Mg/3 Ml Neb 2.5 Mg NEB Q8HR NEB PRN While awake Review of Systems General / Constitutional: No: Fever Eyes: No: Visual changes HENT: No: Headaches Cardiovascular: Positive: Chest Pain or Discomfort Respiratory: Positive: Cough, Wheezing Gastrointestinal: Positive: Nausea, Vomiting, Diarrhea, Abdominal Pain Genitourinary: No: Dysuria Musculoskeletal: No: Pain Skin: No Rash Neurologic: No: Weakness Psychiatric: Positive: Anxiety, No: Depression Endocrine: No: Polydipsia Hematologic/Lymphatic: No: Easy Bruising Physical Exam Narrative GENERAL: Well-nourished, well-developed patient is very anxious but in no distress. SKIN: Focused skin assessment reveals no rash and nodules. Skin is Warm and dry. HEAD: Atraumatic. Normocephalic. EYES: Pupils equal and round. No scleral icterus. No injection or drainage. ENT: No nasal bleeding or discharge. Mucous membranes pink and moist. NECK: Trachea midline. No JVD. CARDIOVASCULAR: Regular rate and rhythm. No murmur appreciated. RESPIRATORY: No accessory muscle use. Clear to auscultation. Breath sounds equal bilaterally. GASTROINTESTINAL: Abdomen soft, non-tender, nondistended. Hepatic and splenic margins not palpable. MUSCULOSKELETAL: No obvious deformities. No clubbing. No cyanosis. No edema. NEUROLOGICAL: Awake and alert. No obvious cranial nerve deficits. Motor grossly within normal limits. Normal speech. PSYCHIATRIC: Anxious mood and affect; insight and judgment normal. Data Data Last Documented VS Vital Signs Date Time Temp Pulse Resp B/P Pulse Ox O2 Delivery O2 Flow Rate FiO2 03/16/17 10:41 98 Room Air 03/16/17 10:35 97.4 85 22 140/78 Orders Electrocardiogram (03/16/17 10:52) Basic Metabolic Panel (Bmp) (03/16/17 10:52) Ckmb (Isoenzyme) Profile (03/16/17 10:52) Complete Blood Count With Diff (03/16/17 10:52) Troponin I (03/16/17 10:52) Chest, Single Ap (03/16/17 10:52) Ecg Monitoring (03/16/17 10:52) Iv Access Insert/Monitor (03/16/17 10:52) Oximetry (03/16/17 10:52) Sodium Chloride 0.9% Flush (Ns Flush) (03/16/17 11:00) Ondansetron Inj (Zofran Inj) (03/16/17 11:00) Acetamin-Hydrocod 325-5 Mg ([place] 5-325 (03/16/17 11:00) Sodium Chlor 0.9% 1000 Ml Inj (Ns 1000 M (03/16/17 12:00) Sodium Chlor 0.9% 1000 Ml Inj (Ns 1000 M (03/16/17 12:00) Labs Laboratory Tests Test 03/16/17 11:03 White Blood Count 17.6 TH/MM3 Red Blood Count 6.18 MIL/MM3 Hemoglobin 19.4 GM/DL Hematocrit 57.2 % Mean Corpuscular Volume 92.4 FL Mean Corpuscular Hemoglobin 31.4 PG Mean Corpuscular Hemoglobin 34.0 % Concent Red Cell Distribution Width 12.6 % Platelet Count 365 TH/MM3 Mean Platelet Volume 9.1 FL Neutrophils (%) (Auto) 76.6 % Lymphocytes (%) (Auto) 17.4 % Monocytes (%) (Auto) 4.9 % Eosinophils (%) (Auto) 0.3 % Basophils (%) (Auto) 0.8 % Neutrophils # (Auto) 13.4 TH/MM3 Lymphocytes # (Auto) 3.1 TH/MM3 Monocytes # (Auto) 0.9 TH/MM3 Eosinophils # (Auto) 0.1 TH/MM3 Basophils # (Auto) 0.1 TH/MM3 CBC Comment DIFF FINAL Differential Comment Sodium Level 135 MEQ/L Potassium Level 4.2 MEQ/L Chloride Level 96 MEQ/L Carbon Dioxide Level 23.9 MEQ/L Anion Gap 15 MEQ/L Blood Urea Nitrogen 40 MG/DL Creatinine 1.50 MG/DL Estimat Glomerular Filtration 35 ML/MIN Rate Random Glucose 335 MG/DL Calcium Level 9.3 MG/DL Total Creatine Kinase 83 U/L Troponin I LESS THAN 0.02 NG/ML [facility] Medical Decision Making Medical Screen Exam Complete: Yes Emergency Medical Condition: Yes Medical Record Reviewed: Yes Differential Diagnosis Flu syndrome, anxiety, gastroenteritis Narrative Course I have reviewed the patient's electronic medical record. Patient was here December 2016 and had a normal cardiac stress test IV placed I reviewed the EKG which shows sinus rhythm but no ST elevation or ectopy I reviewed the chest x-ray which is normal Extended cardiac monitoring shows sinus rhythm without ectopy CBC shows some nonspecific leukocytosis Metabolic profile shows renal insufficiency which is new from prior labs as well as hyperglycemia CK normal Troponin normal I gave her a dose of IV Zofran and 2 pain pills. She has normal vital signs and no objective exam findings. Lab studies suggest some moderate dehydration. I gave HER-2 full liters of normal saline IV She looks clinically euvolemic I prescribed her some Zofran Think she has viral gastroenteritis/flu syndrome type of picture Recommending primary care follow-up Her chest discomfort is noncardiac and I don't feel this requires hospitalization. She had recent stress testing 2 months ago that was negative. It is reproducible chest wall palpation Diagnosis Primary Impression: Hypovolemia dehydration Additional Impressions: Gastroenteritis Non-cardiac chest pain Additional Instructions: The patient was advised to follow up with their physician and return if they worsen. I have recommended clear liquids for 24 hours, then gradually advance as tolerated. Check and record blood sugar frequently Med/Other Pt SpecificInfo: Prescription(s) given Scripts Ondansetron (Zofran)4 Mg Tab4 Mg PO Q6HR PRN (NAUSEA OR VOMITING) #12 TAB Ref 0 Prov:Michael Hawley MD 03/16/17 Disposition: 01 DISCHARGE HOME Condition: Stable Michael Hawley MD March 16, 2017 10:59
[2017-03-16] MEDS ORDERED: ONDANSETRON HCL 4 MG/2 ML VIAL IVP ONE (11:00)
[2017-03-16] MEDS ORDERED: ACETAMINOPHEN/HYDROcodone 325 MG/5 MG TAB PO ONE (11:00)
[2017-03-16] MEDS ORDERED: SODIUM CHLORIDE 0.9% FLUSH 10 ML FLUSH IVF PRN (11:00)
--- NOTE | 2017-03-16 11:17 | RADHPO ---
EXAM DATE/TIME: 03/16/2017 10:58 [facility] COMPARISON: CHEST SINGLE AP, December 31, 2016, 10:57. INDICATIONS : Chest pain. MEDICAL HISTORY : Hypertension. Carcinoma, lung. Myocardial infarction. SURGICAL HISTORY : lobectomy ENCOUNTER: Initial ACUITY: 1 day PAIN SCORE: 8/10 LOCATION: Bilateral chest FINDINGS: A single view of the chest demonstrates the lungs to be symmetrically aerated without evidence of mas s, infiltrate or effusion. The cardiomediastinal contours are unremarkable. Osseous structures are intact. CONCLUSION: No acute disease. Peter Clark MD on March 16, 2017 at 11:15 Board Certified Radiologist. This report was verified electronically.
[2017-03-16 11:22] LABS: AUTOMATED NEUTROPHIL # 13.4 TH/MM3 (1.8-7.7); BASOPHIL # 0.1 TH/MM3 (0-0.2); BASOPHIL % 0.8 % (0.0-2.0); EOSINOPHIL # 0.1 TH/MM3 (0-0.4); EOSINOPHIL % 0.3 % (0.0-4.0); HEMATOCRIT 57.2 % (35.0-46.0); HEMO FLAGS DIFF FINAL; LYMPH % 17.4 % (9.0-44.0); LYMPHOCYTE # 3.1 TH/MM3 (1.0-4.8); MEAN CELL VOLUME 92.4 FL (80.0-100.0); MEAN CORPUSCULAR HEMOGLOBIN 31.4 PG (27.0-34.0); MONO % 4.9 % (0.0-8.0); NEUT % 76.6 % (16.0-70.0); PLATELET COUNT 365 TH/MM3 (150-450); RED BLOOD COUNT 6.18 MIL/MM3 (4.00-5.30); RED CELL DISTRIBUTION WIDTH 12.6 % (11.6-17.2); WHITE BLOOD COUNT 17.6 TH/MM3 (4.0-11.0)
[2017-03-16 11:30] LABS: CHLORIDE 96 MEQ/L (98-107); POTASSIUM 4.2 MEQ/L (3.5-5.1); SODIUM (NA) 135 MEQ/L (136-145)
[2017-03-16 11:33] LABS: ANION GAP 15 MEQ/L (5-15); BICARBONATE 23.9 MEQ/L (21.0-32.0); BLOOD UREA NITROGEN 40 MG/DL (7-18)
[2017-03-16 11:36] LABS: GLOMERULAR FILTRATION RATE 35 ML/MIN (>89)
[2017-03-16 11:43] LABS: CREATINE KINASE 83 U/L (26-192)
[2017-03-16] MEDS ORDERED: ZOFR4TAB PO (11:56)
[2017-03-16] MEDS ORDERED: SODIUM CHLOR 0.9% 1000 ML INJ 1,000 ML IV ONE ×2 (12:00)
[2017-03-16 12:02] VITALS: BP 110/73; PULSE 75; RESP 18; O2SAT 95
[2017-03-16 13:21] VITALS: BP 102/64; PULSE 72; RESP 18; O2SAT 95
--- NOTE | 2017-03-17 14:37 | EKG ---
Date Performed: 03/16/2017 Time Performed: 10:31:52 PTAGE: 61 years EKG: Sinus rhythm Possible left atrial abnormality Anteroseptal ST changes are nonspecific Borderline ECG PREVIOUS TRACING : 12/31/2016 18.37 Since previous tracing, no significant change noted DOCTOR: Louie Phipps Interpretating Date/Time 03/17/2017 14:35:40
== END 2017-03-16 13:39 | disposition home or self-care (01) ==
LOC: PHED 10:30
DX: E86.0 Dehydration (principal); E86.1 Hypovolemia; K52.9 Noninfective gastroenteritis and colitis, unspecified; R07.89 Other chest pain; F17.210 Nicotine dependence, cigarettes, uncomplicated
CPT/HCPCS: 71010; 80048; 82550; 84484; 85025; 93005; 96361; 96374; 99285; J2405; J7030

== ENCOUNTER 2017-11-26 15:07 | Emergency (ER) | payer MEDICARE ==
[~2017-11-26] VITALS: Ht 154.9 cm; Wt 75.0 kg
[~2017-11-26 15:07] MED LIST changes: -ASPI81TA5 PO; +ECASA81 PO; -METF1000 PO; -ROPI0.5T PO; +ZOFR4TAB PO
[2017-11-26 15:19] VITALS: BP 133/65; PULSE 73; RESP 16; TEMP 98.4; O2SAT 96
[2017-11-26] MEDS ORDERED: SODIUM CHLOR 0.9% 1000 ML INJ 1,000 ML IV ONE ×2 (17:08→17:38)
[2017-11-26] MEDS ORDERED: SODIUM CHLORIDE 0.9% FLUSH 10 ML FLUSH IVF PRN (17:15)
--- NOTE | 2017-11-26 17:20 | PD ---
HPI . Hyperglycemia Chief Complaint: Diabetic Time Seen by Provider: 17:07 Travel History International Travel<30 days: No Contact w/Intl Traveler<30days: No Traveled to known affect area: No History of Present Illness HPI Patient presents with a four-day history of hyperglycemia. She states that her fingerstick blood sugar has been in the mid 500s. Symptoms have been consistent for the last 4 days. She states that she has been taking her usual dose of insulin but has not taken any extra insulin. She does complain of polyuria and polydipsia. She is also complaining with increased hunger. She has some occasional nausea and abdominal cramping. She is complaining with some numbness of her right arm and leg. 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) Cardiac Catheterization: No Cardiovascular Problems: Yes High Cholesterol: Yes Chemotherapy: Yes (2014) Chest Pain: Yes Congestive Heart Failure: No COPD: Yes (2L oxygen at NIGHT) Cerebrovascular Accident: No Diabetes: Yes Diminished Hearing: No Endocrine: Yes Gastrointestinal Disorders: Yes (ESOPHAGEAL STRICTURE "DILATED") GERD: Yes Genitourinary: Yes Headaches: No Hepatitis: Yes (HEP C) Hiatal Hernia: No Herniated Disk: Yes Hypertension: Yes Immune Disorder: No Implanted Vascular Access Dvce: Yes (R CHEST POWER PORT) Kidney Stones: No Musculoskeletal: Yes Neurologic: No Psychiatric: Yes (PANIC ATTACKS) Reproductive: No Respiratory: Yes (COPD) Integumentary: Yes (HX: MRSA 2006, CLEAR IN 2014) Immunizations Current: Yes Migraines: No Myocardial Infarction: Yes (2005) Pneumonia: Yes Radiation Therapy: No Renal Failure: No Seizures: No Sickle Cell Disease: No Sleep Apnea: No Thyroid Disease: No Ulcer: Yes Menopausal: Yes : 1 Para: 1 Miscarriage: 0 : 0 Past Surgical History Abdominal Surgery: Yes (appy) AICD: No Appendectomy: Yes Arteriovenous Shunt: No Cardiac Surgery: No Cholecystectomy: No Coronary Artery Bypass Graft: No Ear Surgery: No Endocrine Surgery: No Eye Surgery: No Genitourinary Surgery: No Gynecologic Surgery: Yes (lumpectomy-benign left breast, HYSTERECTOMY) Hysterectomy: Yes Insulin Pump: No Joint Replacement: No Neurologic Surgery: No Oral Surgery: No Pacemaker: No Thoracic Surgery: Yes (LEFT UPPER LOBECTOMY) Other Surgery: Yes (LEFT BREAST LUMPECTOMY) Social History Alcohol Use: No Tobacco Use: Yes (4 CIGARETTES DAILY) Substance Use: No Allergies-Medications (Allergen,Severity, Reaction): Coded Allergies: *MDRO Multi-Drug Resistant Organism (Verified Allergy, Unknown, 12/31/16) MRSA patient reports history from 2006 MRSA PCR Screen negative 07/04/15. alendronate sodium (Verified Allergy, Unknown, 11/26/17) metformin (Verified Allergy, Unknown, 11/26/17) Reported Meds & Prescriptions Reported Meds & Active Scripts Active Zofran (Ondansetron HCl) 4 Mg Tab 4 Mg PO Q6HR PRN Reported Ventolin Hfa 18 GM Inh (Albuterol Sulfate) 90 Mcg/Act Aer 2 Puff INH Q4-6H PRN Quetiapine (Quetiapine Fumarate) 25 Mg Tab 50-75 Mg PO HS Pantoprazole (Pantoprazole Sodium) 40 Mg Tab 40 Mg PO DAILY PRN Percocet (Oxycodone-Acetaminophen) 5-325 mg Tab 1 Tab PO Q5-6HR PRN Morphine ER (Morphine Sulfate) 30 Mg Tab 30 Mg PO Q12HR Nitroglycerin SL (Nitroglycerin) 0.4 Mg Subl 0.4 Mg SL DIRECTED PRN ONE TABLET UNDER THE TONGUE NEEDED FOR CHEST PAIN, MAY REPEAT EVERY FIVE MINUTES FOR A TOTAL OF 3 DOSES OR CALL 911 IF NO RELIEF Multi Vitamin (Multiple Vitamin) 1 Tab Tab 1 Tab PO DAILY Metoprolol Tartrate 50 Mg Tab 50 Mg PO BID Ipratropium Neb (Ipratropium [place]) 0.5 Mg/2.5 Ml Amp 0.5 Mg NEB TID NEB PRN Glimepiride 2 Mg Tab 2 Mg PO BID Gabapentin 600 Mg Tab 600 Mg PO BID Flonase Nasal [place] (Fluticasone Nasal [place]) 50 Mcg/Act [place] 2 [place] EACH NARE DAILY PRN Fenofibrate 145 Mg Tab 145 Mg PO DAILY Clonazepam 0.5 Mg Tab 0.5 Mg PO HS Calcitonin ([place]) Nasal [place] (Calcitonin [place]) 200 Units/Act Soln 1 [place] NASAL DAILY ALTERNATE NARE Alternate nostrils daily. Aspirin DR (Aspirin) 81 Mg Tabdr 81 Mg PO DAILY Amlodipine (Amlodipine Besylate) 5 Mg Tab 5 Mg PO DAILY Albuterol Neb (Albuterol Sulfate) 2.5 Mg/3 Ml Neb 2.5 Mg NEB Q8HR NEB PRN While awake Review of Systems Except as stated in HPI: all other systems reviewed are Neg General / Constitutional: No: Fever, Chills Gastrointestinal: Positive: Nausea, Abdominal Pain, No: Vomiting, Diarrhea Neurologic: Positive: Paresthesia, No: Change in Mentation Endocrine: Positive: Polyuria, Polydipsia Physical Exam Narrative GENERAL: Patient is awake and alert and fully oriented. SKIN: warm/dry. Good color and turgor. HEAD: Normocephalic. Atraumatic. EYES: Pupils equal and round. No scleral icterus. No injection or drainage. ENT: No nasal bleeding or discharge. Mouth is dry. I do not smell ketones. NECK: Trachea midline. Full range of motion without pain.. CARDIOVASCULAR: Regular rate and rhythm. Heart sounds are normal. RESPIRATORY: No accessory muscle use. Clear to auscultation. Breath sounds equal bilaterally. GASTROINTESTINAL: Abdomen soft. Nontender. Bowel sounds present. Nondistended. MUSCULOSKELETAL: No obvious deformities. NEUROLOGICAL: Awake and alert. No obvious cranial nerve deficits. Motor grossly within normal limits. Normal speech. PSYCHIATRIC: Appropriate mood and affect; insight and judgment normal. Data Data Last Documented VS Vital Signs Date Time Temp Pulse Resp B/P (MAP) Pulse Ox O2 Delivery O2 Flow Rate FiO2 11/26/17 18:00 67 20 133/74 (93) 96 Room Air 11/26/17 15:19 98.4 Orders Orders Electrocardiogram (11/26/17 17:08) Complete Blood Count With Diff (11/26/17 17:08) Comprehensive Metabolic Panel (11/26/17 17:08) Beta Hydroxybutyrate (Acetone) (11/26/17 17:08) Urinalysis - C+S If Indicated (11/26/17 17:08) Blood Glucose (11/26/17 17:08) Blood Glucose (11/26/17 18:08) Ecg Monitoring (11/26/17 17:08) Iv Access Insert/Monitor (11/26/17 17:08) Oximetry (11/26/17 17:08) NPO (11/26/17 17:08) Sodium Chlor 0.9% 1000 Ml Inj (Ns 1000 M (11/26/17 17:08) Sodium Chlor 0.9% 1000 Ml Inj (Ns 1000 M (11/26/17 17:38) Sodium Chloride 0.9% Flush (Ns Flush) (11/26/17 17:15) Labs Laboratory Tests Test 11/26/17 17:20 11/26/17 17:35 White Blood Count 11.0 TH/MM3 Red Blood Count 5.26 MIL/MM3 Hemoglobin 17.0 GM/DL Hematocrit 49.3 % Mean Corpuscular Volume 93.6 FL Mean Corpuscular Hemoglobin 32.2 PG Mean Corpuscular Hemoglobin Concent 34.4 % Red Cell Distribution Width 13.7 % Platelet Count 245 TH/MM3 Mean Platelet Volume 8.1 FL Neutrophils (%) (Auto) 78.3 % Lymphocytes (%) (Auto) 14.6 % Monocytes (%) (Auto) 5.1 % Eosinophils (%) (Auto) 0.8 % Basophils (%) (Auto) 1.2 % Neutrophils # (Auto) 8.6 TH/MM3 Lymphocytes # (Auto) 1.6 TH/MM3 Monocytes # (Auto) 0.6 TH/MM3 Eosinophils # (Auto) 0.1 TH/MM3 Basophils # (Auto) 0.1 TH/MM3 CBC Comment DIFF FINAL Differential Comment Blood Urea Nitrogen 27 MG/DL Creatinine 1.20 MG/DL Random Glucose 339 MG/DL Total Protein 7.9 GM/DL Albumin 3.6 GM/DL Calcium Level 8.9 MG/DL Alkaline Phosphatase 110 U/L Aspartate Amino Transf (AST/SGOT) 31 U/L Alanine Aminotransferase (ALT/SGPT) 29 U/L Total Bilirubin 0.6 MG/DL Sodium Level 132 MEQ/L Potassium Level 4.7 MEQ/L Chloride Level 100 MEQ/L Carbon Dioxide Level 24.2 MEQ/L Anion Gap 8 MEQ/L Estimat Glomerular Filtration Rate 45 ML/MIN B-Hydroxybutyrate 0.11 MMOL/L Urine Color YELLOW Urine Turbidity CLEAR Urine pH 5.5 Urine Specific [place] 1.030 Urine Protein NEG mg/dL Urine Glucose (UA) 1000 OR GREATER mg/dL Urine Ketones NEG mg/dL Urine Occult Blood TRACE Urine Nitrite NEG Urine Bilirubin NEG Urine Leukocyte Esterase NEG Urine RBC 0-3 /hpf Urine WBC 0-2 /hpf Urine Squamous Epithelial Cells 0-5 /hpf Urine Bacteria OCC /hpf Urine Yeast ([place]) OCC Microscopic Urinalysis Comment CULT NOT INDICATED MDM Medical Decision Making Medical Screen Exam Complete: Yes Emergency Medical Condition: Yes Differential Diagnosis Differential diagnosis of hyperglycemia includes but is not limited to dietary indiscretion, medication noncompliance, infection, [place] Narrative Course This patient presents complaining with a four-day history of hypoglycemia. The nurse told me that her fingerstick blood sugar is about 340 currently. I have ordered IV fluids but have not yet ordered any insulin. Her sugar will be repeated following IV fluids. Labs are in process to rule out DKA. CBC & BMP Diagram 11/26/17 17:20 Total Protein 7.9, Albumin 3.6, Calcium Level 8.9, Alkaline Phosphatase 110, Aspartate Amino Transf (AST/SGOT) 31, Alanine Aminotransferase (ALT/SGPT) 29, Total Bilirubin 0.6 B-hydroxybutyrate 0.11 UA neg for infection. This patient is hyperglycemic but is not in DKA. FSBS down to 255 just with IVF. Diagnosis Primary Impression: Hyperglycemia Patient Instructions: General Instructions, Hypoglycemia in a Person with Diabetes (DC) Additional Instructions: Talk to your primary care provider or your solar sales ambassador about what to do when her sugar is high. They may want to review a "sliding scale" for hyperglycemia. Disposition: 01 DISCHARGE HOME Condition: Stable Lucia Martinez MD Nov 26, 2017 17:20
[2017-11-26 17:39] LABS: AUTOMATED NEUTROPHIL # 8.6 TH/MM3 (1.8-7.7); BASOPHIL % 1.2 % (0.0-2.0); EOSINOPHIL % 0.8 % (0.0-4.0); HEMATOCRIT 49.3 % (35.0-46.0); LYMPH % 14.6 % (9.0-44.0); LYMPHOCYTE # 1.6 TH/MM3 (1.0-4.8); MEAN CELL VOLUME 93.6 FL (80.0-100.0); MEAN CORPUSCULAR HEMOGLOBIN 32.2 PG (27.0-34.0); MEAN CORPUSCULAR HGB CONC 34.4 % (32.0-36.0); MEAN PLATELET VOLUME 8.1 FL (7.0-11.0); MONO % 5.1 % (0.0-8.0); MONOCYTE # 0.6 TH/MM3 (0-0.9); NEUT % 78.3 % (16.0-70.0); PLATELET COUNT 245 TH/MM3 (150-450); RED BLOOD COUNT 5.26 MIL/MM3 (4.00-5.30); RED CELL DISTRIBUTION WIDTH 13.7 % (11.6-17.2)
[2017-11-26 17:40] LABS: BASOPHIL # 0.1 TH/MM3 (0-0.2); EOSINOPHIL # 0.1 TH/MM3 (0-0.4)
[2017-11-26 17:49] LABS: CHLORIDE 100 MEQ/L (98-107); SODIUM (NA) 132 MEQ/L (136-145)
[2017-11-26 17:49] LABS: BILIRUBIN, URINE NEG (NEG); BLOOD, URINE TRACE (NEG); GLUCOSE,URINE 1000 OR GREATER mg/dL (NEG); KETONE, URINE NEG (NEG); NITRITE,URINE NEG (NEG); PH, URINE 5.5 (5.0-8.5); URINE LEUKOCYTE ESTERASE NEG (NEG)
[2017-11-26 17:52] LABS: CALCIUM 8.9 MG/DL (8.5-10.1)
[2017-11-26 17:53] LABS: ALBUMIN 3.6 GM/DL (3.4-5.0); BICARBONATE 24.2 MEQ/L (21.0-32.0); BLOOD UREA NITROGEN 27 MG/DL (7-18); GLUCOSE,RANDOM 339 MG/DL (74-106)
[2017-11-26 17:56] LABS: ALT (GPT) 29 U/L (10-53); AST (GOT) 31 U/L (15-37); GLOMERULAR FILTRATION RATE 45 ML/MIN (>89)
[2017-11-26 17:57] VITALS: RESP 20; O2SAT 96
[2017-11-26 17:57] LABS: TOTAL BILIRUBIN ADULT 0.6 MG/DL (0.2-1.0)
[2017-11-26 17:58] LABS: TOTAL PROTEIN 7.9 GM/DL (6.4-8.2)
[2017-11-26 17:59] LABS: ALKALINE PHOSPHATASE 110 U/L (45-117)
[2017-11-26 18:00] VITALS: BP 133/74; PULSE 67; RESP 20; O2SAT 96
[2017-11-26 18:00] LABS: URINE COLOR YELLOW (YELLW/STRAW)
[2017-11-26 18:02] LABS: BACTERIA, URINE OCC /hpf; RBC, URINE 0-3 /hpf (0-3); SQUAMOUS EPITHELIAL CELL URINE 0-5 /hpf (0-5); WBC, URINE 0-2 /hpf (0-5)
[2017-11-26 19:01] VITALS: BP 119/64
--- NOTE | 2017-11-27 16:24 | EKG ---
Date Performed: 11/26/2017 Time Performed: 17:47:53 PTAGE: 62 years EKG: Sinus rhythm WITH OCCASIONAL SUPRAVENTRICULAR PREMATURE COMPLEXES ST DEVIATION AND MODERATE T-WAVE ABNORMALITY, C ONSIDER ANTERIOR ISCHEMIA ABNORMAL ECG PREVIOUS TRACING : 03/16/2017 10.31 Since previous tracing, no significant change noted DOCTOR: Hilton Garcia Interpretating Date/Time 11/27/2017 16:22:59
== END 2017-11-26 19:03 | disposition home or self-care (01) ==
LOC: PHED 15:07
DX: E11.65 Type 2 diabetes mellitus with hyperglycemia (principal); F17.210 Nicotine dependence, cigarettes, uncomplicated; I10 Essential (primary) hypertension; J44.9 Chronic obstructive pulmonary disease, unspecified; K21.9 Gastro-esophageal reflux disease without esophagitis; Z79.84 Long term (current) use of oral hypoglycemic drugs
CPT/HCPCS: 80053; 81001; 82010; 85025; 93005; 96360; 99284; J7030

== ENCOUNTER 2018-07-13 13:15 | Inpatient (IN) ==
[2018-07-13] MEDS ORDERED: Dextrose 50% in Water 50 ML Vial IV.PUSH PRN (14:06)
[2018-07-13] MEDS ORDERED: Acetaminophen 325 MG Tablet PO PRN (15:11)
--- NOTE | 2018-07-13 15:14 | P.HPIM ---
History of Present Illness Primary Care Physician: Donnell Paul MD, PhD History of Present Illness: Mrs. López is a pleasant 62 y/o female with hx of lung cancer, COPD, diabetes , HTN, chronic back pain and GERD. She was admitted to [facility] [place] on 07/13/18 for further evaluation of abnormal findings on a recent PET/CT. Pt had recently been seen in the in the ER at [facility] [place] on 05/30/[address] chest which noted a new 10mm right upper lobe lung nodule. She followed up with Oncology, Dr. Wilson, who sent her for a PET/CT. The PET/CT on 07/06/18 noted increased activity in the right upper lobe characteristic of malignancy and increased activity in the colon in the rectosigmoid junction. Pt had been planned for a CT guided lung biopsy and a sigmoidoscopy to evaluate the findings in the colon. It was felt that the pt was at high risk for developing pneumothorax following the biopsy in the setting of her significant COPD. We have coordinated care with GI for the pt to have the sigmoidoscopy tomorrow and lung biopsy the following day. Past Medical Hx: COPD Lung cancer, originally diagnosed in 2012, pathology with adenocarcinoma with sarcomatoid elements. s/p chemo Diabetes GERD HTN Hyperlipidemia Chronic back pain Diabetic gastroparesis Diabetic neuropathy Hx of Hepatitis C IBS Depression/Anxiety Past Surgical Hx: Left upper lobe wedge resection/left upper lobectomy/mediastinal lymph node dissection on 10/06/[address] Souza Complete hysterectomy with BSO Appendectomy Colonoscopy on 12/06/2014 --> moderate diverticulosis in the sigmoid colon, sessile polyp in the sigmoid colon. Family Hx: Noncontributory Social Hx: Hx of tobacco use, quit in 2014 Denies any alcohol use Pt is and lives alone. - Diagnosis (1) Abnormal PET of right lung (2) Abnormal PET scan of colon (3) Hx of cancer of lung (4) COPD (chronic obstructive pulmonary disease) (5) Diabetes (6) HTN (hypertension) Inpatient Certification: I certify that the inpatient services were ordered in accordance with Medicare regulations governing the order. This includes certification that hospital inpatient services are reasonable and necessary and in the case of services not specified as inpatient-only under 42 CFR 419.22(n), that they are appropriately provided as inpatient services in accordance to with the 2-midnight benchmark under 43 CFR 412.3(e) Estimated Total Length of Stay (Days): 3 Plans for Post Hospital Care: Home Review of Systems Constitutional: Denies chills, Denies fever(s), Denies night sweats Eyes: Denies double vision, Denies loss of vision Ears, Nose, Mouth, and Throat: Denies dizziness, Denies nasal congestion Cardiovascular: Denies chest pain, Denies rapid, pounding, or irregular heartbeat Respiratory: Denies cough Gastrointestinal: Denies abdominal pain, Denies constipation, Denies nausea, Denies vomiting Genitourinary: Denies urinary incontinence, Denies urinary urgency Musculoskeletal: Reports back pain Skin/Breast: Denies rash Neurologic: Denies dizziness, Denies frequent falls, Denies headache(s), Denies localized weakness, Denies loss of vision PMFSH - History History Provided By: Patient - Medical History Medical History: Medical History (Last Updated 07/05/18 @ 07:48 by Deneen Zhu RN) Back pain, chronic COPD (chronic obstructive pulmonary disease) Diabetes H/O: hysterectomy Hyperlipidemia Hypertension Lung cancer Ovarian cancer Pulmonary embolism - Surgical History Surgical History: Surgical History (Last Updated 07/05/18 @ 07:48 by Deneen Zhu RN) H/O breast biopsy Hx of appendectomy S/P lobectomy of lung - Tobacco History Second Hand Smoke Exposure: Yes Tobacco Use In Past 30 Days: Yes Smoking Status: Current every day smoker Tobacco Type: Cigarettes - Alcohol History How Often Do You Have a Drink Containing Alcohol: Never - Substance Use History Substance History: No History of Abuse - Immunization History Tetanus Immunization: >5 Years Hx Influenza Vaccine This Season: Yes Medications and Allergies Allergies Allergy/AdvReac Type Severity Reaction Status Date / Time alendronate sodium Allergy Unknown Swelling Verified 07/05/18 07:46 metformin Allergy Unknown Diarrhea Verified 07/05/18 07:46 *MDRO Multi-Drug Resistant Allergy Unknown UNKNOWN Uncoded 05/30/18 11:53 Organism Home Medications Medication Instructions Recorded Confirmed Type Contour Test Strips 07/05/18 07/05/18 History albuterol sulfate 0.63 mg INHALATION TID PRN MDD XX 07/05/18 07/13/18 History amlodipine 5 mg PO DAILY 07/05/18 07/13/18 History aspirin [Aspir-81] 81 mg PO DAILY 07/05/18 07/13/18 History calcitonin (salmon) 07/05/18 History calcitonin (salmon) 1 spray INTRANASAL (ALT) DAILY 07/05/18 07/05/18 History clonazepam 0.5 mg PO BID 07/05/18 07/13/18 History empagliflozin [Jardiance] 25 mg PO DAILY 07/05/18 07/13/18 History fenofibrate 145 mg PO DAILY 07/05/18 07/13/18 History gabapentin 300 mg PO BID 07/05/18 07/13/18 History glimepiride 4 mg PO BID 07/05/18 07/13/18 History insulin degludec [Tresiba 40 unit SUB-Q DAILY 07/05/18 07/13/18 History FlexTouch U-100] ipratropium bromide 0.02 mg INHALATION TID 07/05/18 07/13/18 History metoprolol tartrate 50 mg PO BID 07/05/18 07/13/18 History morphine 30 mg PO BID 07/05/18 07/13/18 History nitroglycerin [Nitrostat] 0.4 mg SUBLINGUAL Q5-15M PRN 07/05/18 07/13/18 History oxycodone-acetaminophen 1 tab PO Q4-6H PRN 07/05/18 07/13/18 History quetiapine 25 mg PO HS 07/05/18 07/13/18 History umeclidinium-vilanterol [Anoro 1 inh INHALATION Q24H 07/05/18 07/13/18 History Ellipta] Active Medications: Active Medications Albuterol (Duoneb Neb (Prn)) 1 ampul NEB Q4HR NEB PRN PRN Reason: sob/wheeze Dextrose (D50w Vial) 50 ml IV.PUSH UNSCH PRN PRN Reason: PER HYPOGLYCEMIA PROTOCOL Glucagon (Glucagon Inj) 1 mg OTHER PRN PRN PRN Reason: for Hypoglycemia Protocol Insulin Aspart (Novolog Insulin Correctional Sugar Inj) [address] [facility]; Protocol Exam Vital signs: Vital Signs 07/13/18 13:51 Temperature 98.0 F Pulse Rate 82 Respiratory Rate 20 Blood Pressure 121/89 Pulse Oximetry 92 L Intake & Output 07/12/18 07/13/18 07/13/18 18:59 06:59 18:59 Weight 79.8 kg Other: Weight On Admission 79.8 kg Narrative: GENERAL: NAD, AAOx3 SKIN: Warm and dry. HEENT: Atraumatic. Normocephalic. Pupils equal and round. No scleral icterus. No injection or drainage. No nasal bleeding or discharge. Mucous membranes pink and moist. NECK: Trachea midline. No JVD. CARDIO: Regular rate and rhythm. RESP: No accessory muscle use. Breath sounds equal bilaterally. ABD: +BS, soft, non-tender, nondistended. H EXT: Extremities without clubbing, cyanosis, or edema. No obvious deformities. NEURO: Awake and alert. No obvious cranial nerve deficits. Motor grossly within normal limits. Five out of 5 muscle strength in the arms and legs. Normal speech. PSYCH: Appropriate mood and affect; insight and judgment normal. Results - Labs CBC & Chem 7: 07/13/18 15:05 07/13/18 15:05 [place] VTE Risk Assessment Naomy VTE Risk Assessment: Moderate/High Risk (score >= 2) Caprini Risk Assessment Model: Point Value = 1 Point Value = 2 Point Value = 3 Point Value = 5 Age 41-60 Minor surgery BMI > 25 kg/m2 Swollen legs Varicose veins or History of unexplained or recurrent spontaneous Oral contraceptives or hormone replacement Sepsis (< 1 month) Serious lung disease, including pneumonia (< 1 month) Abnormal pulmonary function Acute myocardial infarction Congestive heart failure (< 1 month) History of inflammatory bowel disease Medical patient at bed rest Age 61-74 Arthroscopic surgery Major open surgery (> 45 min) Laparoscopic surgery (> 45 min) Malignancy Confined to bed (> 72 hours) Immobilizing plaster cast Central venous access Age >= 75 History of VTE Family history of VTE Factor V Leiden Prothrombin [id number] Lupus anticoagulant Anticardiolipin antibodies Elevated serum homocysteine Heparin-induced thrombocytopenia Other congenital or acquired thrombophilia Stroke (< 1 month) Elective arthroplasty Hip, pelvis, or leg fracture Acute spinal cord injury (< 1 month) Prophylaxis Regimen: Total Risk Factor Score Risk Level Prophylaxis Regimen 0-1 Low Early ambulation 2 Moderate Order ONE of the following: *Sequential Compression Device (SCD) *Heparin 5000 units SQ BID 3-4 Higher Order ONE of the following medications: *Heparin 5000 units SQ TID *Enoxaparin/Lovenox 40 mg SQ daily (WT < 150 kg, CrCl > 30 mL/min) *Enoxaparin/Lovenox 30 mg SQ daily (WT < 150 kg, CrCl > 10-29 mL/min) *Enoxaparin/Lovenox 30 mg SQ BID (WT < 150 kg, CrCl > 30 mL/min) AND/OR *Sequential Compression Device (SCD) 5 or more Highest Order ONE of the following medications: *Heparin 5000 units SQ TID (Preferred with Epidurals) *Enoxaparin/Lovenox 40 mg SQ daily (WT < 150 kg, CrCl > 30 mL/min) *Enoxaparin/Lovenox 30 mg SQ daily (WT < 150 kg, CrCl > 10-29 mL/min) *Enoxaparin/Lovenox 30 mg SQ BID (WT < 150 kg, CrCl > 30 mL/min) AND *Sequential Compression Device (SCD) Assessment and Plan - Assessment (1) Abnormal PET of right lung Code(s): R94.2 - Abnormal results of pulmonary function studies Status: Acute Plan: Abnormal PET scan findings of the right lung and rectosigmoid colon Hx of lung cancer COPD - Pt is a 62 y/o female with hx of lung cancer, COPD, diabetes, HTN, chronic back pain and GERD. - She was admitted to [facility] [place] on 07/13/18 for further evaluation of abnormal findings on a recent PET/CT. Pt had recently been seen in the in the ER at [facility] [place] on 05/30/[address] chest which noted a new 10mm right upper lobe lung nodule. She followed up with Oncology, Dr. Wilson, who sent her for a PET/ CT. The PET/CT on 07/06/18 noted increased activity in the right upper lobe characteristic of malignancy and increased activity in the colon in the rectosigmoid junction. Pt had been planned for a CT guided lung biopsy and a sigmoidoscopy to evaluate the findings in the colon. It was felt that the pt was at high risk for developing pneumothorax following the biopsy in the setting of her significant COPD. We have coordinated care with GI for the pt to have the sigmoidoscopy tomorrow and lung biopsy the following day. - Appreciate Consult from GI. Pt is planned for EGD/colonoscopy on Thursday - Pt will be NPO after MN - Consult IR for biopsy of the lung nodule likely on - Eleni PRN - Cont. Anoro Ellipta HTN - Home meds resumed Diabetes Mellitus - Hold home meds - NovoLog SSI - Accu checks - Pt may need Levemir added once she is eating better. Hyperlipidemia - Home meds continued GERD Gastroparesis - PPI (2) Abnormal PET scan of colon Code(s): R94.8 - Abnormal results of function studies of other organs and systems Status: Acute (3) Hx of cancer of lung Code(s): Z85.118 - Personal history of other malignant neoplasm of bronchus and lung Status: Chronic (4) COPD (chronic obstructive pulmonary disease) Code(s): J44.9 - Chronic obstructive pulmonary disease, unspecified Status: Chronic (5) Diabetes Code(s): E11.9 - Type 2 diabetes mellitus without complications Status: Chronic (6) HTN (hypertension) Code(s): I10 - Essential (primary) hypertension Status: Chronic - Attending Attestation Patient examined. Assessment and plan formulated with Brigid Garces PA-C. I agree with the above. H&P: Quality - VTE Deep Vein Thrombosis/Pulmonary Embolism Present on Admission: No
[2018-07-13 15:19] LABS: Hematocrit 50.6 % (35.0-46.0); Hemoglobin 17.1 gm/dL (11.6-15.3); Mean Corpuscular HGB Conc 33.8 % (32.0-36.0); Mean Corpuscular Hemoglobin 32.5 pg (27.0-34.0); Mean Corpuscular Volume 95.9 fL (80.0-100.0); Mean Platelet Volume 8.2 fL (7.0-11.0); Platelet Count 214 th/mm3 (150-450); Red Blood Count 5.27 mil/mm3 (4.00-5.30); Red Cell Distribution Width 15.1 % (11.6-17.2); White Blood Count 8.7 th/mm3 (4.0-11.0)
[2018-07-13 15:31] LABS: Activated Partial Thrombo Time 24.6 sec (24.3-30.1); Prothrombin Time 9.7 sec (9.8-11.6)
--- NOTE | 2018-07-13 15:38 | P.CONGI ---
History of Present Illness Consult date: 07/13/18 Consult reason: Rectosigmoid mass Chief complaint: C34.10 History of Present Illness: This is a 62-year-old female who was admitted to the hospital on 07/13/2018 for abnormal findings on CT and PET scan. Patient has a history of left lung cancer in 2012 that was treated and now has had a reoccurrence in the right lung back in May 2018 patient was noted to have activity in the colon seen around the rectal sigmoid junction and thought patient needed further evaluation. Gastroenterology was consulted to assist with these findings and a plan of care. Currently patient notes a history of GERD and also noted some increased dyspepsia described as a burning sensation over the past 2 weeks. She states is unrelated to food and seems to wax and wane but more noticeable. Patient denies any hematemesis and no previous history of constipation. Patient also notes no family history of colon cancer. Patient also notes some symptoms of diarrhea for the first time this a.m. x4. She states the stool is watery and dark brown but no obvious blood. Currently patient denies any abdominal pain to light palpation patient is awake answering simple questions appropriately. Current hemoglobin is 17.1, other labs are pending. Thank you very much for the consult <Janeen Mccullough - Last Filed: 07/13/18 15:38> Review of Systems All other systems reviewed negative except as stated in HPI <Janeen Mccullough - Last Filed: 07/13/18 15:38> PMFSH - History History Provided By: Patient - Medical History Medical History: Medical History (Last Updated 07/05/18 @ 07:48 by Deneen Zhu RN) Back pain, chronic COPD (chronic obstructive pulmonary disease) Diabetes H/O: hysterectomy Hyperlipidemia Hypertension Lung cancer Ovarian cancer Pulmonary embolism - Surgical History Surgical History: Surgical History (Last Updated 07/05/18 @ 07:48 by Deneen Zhu RN) H/O breast biopsy Hx of appendectomy S/P lobectomy of lung - Tobacco History Second Hand Smoke Exposure: Yes Tobacco Use In Past 30 Days: Yes Smoking Status: Current every day smoker Tobacco Type: Cigarettes - Alcohol History How Often Do You Have a Drink Containing Alcohol: Never - Substance Use History Substance History: No History of Abuse - Immunization History Tetanus Immunization: >5 Years Hx Influenza Vaccine This Season: Yes <Janeen Mccullough - Last Filed: 07/13/18 15:38> - Medical History Medical History: Medical History (Last Updated 07/05/18 @ 07:48 by Deneen Zhu, RN) Back pain, chronic COPD (chronic obstructive pulmonary disease) Diabetes H/O: hysterectomy Hyperlipidemia Hypertension Lung cancer Ovarian cancer Pulmonary embolism - Surgical History Surgical History: Surgical History (Last Updated 07/05/18 @ 07:48 by Deneen Zhu, RN) H/O breast biopsy Hx of appendectomy S/P lobectomy of lung <Leeann Manley - Last Filed: 07/13/18 19:56> Medications and Allergies Active Medications: Active Medications Acetaminophen (Tylenol) 650 mg PO Q4H PRN PRN Reason: fever or headache Albuterol (Duoneb Neb (Prn)) 1 ampul NEB Q4HR NEB PRN PRN Reason: sob/wheeze Amlodipine Besylate (Norvasc) 5 mg PO DAILY RE[facility]NA Dextrose (D50w Vial) 50 ml IV.PUSH UNSCH PRN PRN Reason: PER HYPOGLYCEMIA PROTOCOL Fenofibrate (Tricor) 145 mg PO DAILY [facility]NA Glucagon (Glucagon Inj) 1 mg OTHER PRN PRN PRN Reason: for Hypoglycemia Protocol Insulin Aspart (Novolog Insulin Correctional Sugar Inj) 0 unit SQ ACHS [facility]; Protocol Metoprolol Tartrate (Lopressor) 50 mg PO BID REANNA Morphine Sulfate (Msir) 30 mg PO BID PRN PRN Reason: PAIN 2-10 Ondansetron HCl (Zofran Inj) 4 mg IV.PUSH Q6H PRN PRN Reason: nausea/vomiting Oxycodone/Acetaminophen (Percocet 5/325 Mg) 1 tab PO Q4H PRN PRN Reason: breakthrough pain over 5 Quetiapine Fumarate (Seroquel) 25 mg PO HS REANNA Umeclidinium/Vilanterol (Anoro-Ellipta 62.5/25 Mcg Inh) 1 puff INH Q24H [facility] <Janeen Mccullough - Last Filed: 07/13/18 15:38> Active Medications: Active Medications Acetaminophen (Tylenol) 650 mg PO Q4H PRN PRN Reason: fever or headache Albuterol (Duoneb Neb (Prn)) 1 ampul NEB Q4HR NEB PRN PRN Reason: sob/wheeze Amlodipine Besylate (Norvasc) 5 mg PO DAILY [facility] Dextrose (D50w Vial) 50 ml IV.PUSH UNSCH PRN PRN Reason: PER HYPOGLYCEMIA PROTOCOL Fenofibrate (Tricor) 145 mg PO DAILY REANNA Glucagon (Glucagon Inj) 1 mg OTHER PRN PRN PRN Reason: for Hypoglycemia Protocol Insulin Aspart (Novolog Insulin Correctional Sugar Inj) 0 unit SQ ACHS [facility]; Protocol Last Admin: 07/13/18 16:47 Dose: 5 unit Metoprolol Tartrate (Lopressor) 50 mg PO BID REANNA Morphine Sulfate (Msir) 30 mg PO BID PRN PRN Reason: PAIN 2-10 Last Admin: 07/13/18 17:32 Dose: 30 mg Ondansetron HCl (Zofran Inj) 4 mg IV.PUSH Q6H PRN PRN Reason: nausea/vomiting Oxycodone/Acetaminophen (Percocet 5/325 Mg) 1 tab PO Q4H PRN PRN Reason: breakthrough pain over 5 Last Admin: 07/13/18 16:27 Dose: 1 tab Quetiapine Fumarate (Seroquel) 25 mg PO HS REANNA Umeclidinium/Vilanterol (Anoro-Ellipta 62.5/25 Mcg Inh) 1 puff INH Q24H [facility] Last Admin: 07/13/18 16:47 Dose: Not Given <Leeann Manley - Last Filed: 07/13/18 19:56> Allergies Allergy/AdvReac Type Severity Reaction Status Date / Time alendronate sodium Allergy Unknown Swelling Verified 07/05/18 07:46 metformin Allergy Unknown Diarrhea Verified 07/05/18 07:46 *MDRO Multi-Drug Resistant Allergy Unknown UNKNOWN Uncoded 05/30/18 11:53 Organism Home Medications Medication Instructions Recorded Confirmed Type Contour Test Strips 07/05/18 07/05/18 History albuterol sulfate 0.63 mg INHALATION TID PRN MDD XX 07/05/18 07/13/18 History amlodipine 5 mg PO DAILY 07/05/18 07/13/18 History aspirin [Aspir-81] 81 mg PO DAILY 07/05/18 07/13/18 History calcitonin (salmon) 07/05/18 History calcitonin (salmon) 1 spray INTRANASAL (ALT) DAILY 07/05/18 07/05/18 History clonazepam 0.5 mg PO BID 07/05/18 07/13/18 History empagliflozin [Jardiance] 25 mg PO DAILY 07/05/18 07/13/18 History fenofibrate 145 mg PO DAILY 07/05/18 07/13/18 History gabapentin 300 mg PO BID 07/05/18 07/13/18 History glimepiride 4 mg PO BID 07/05/18 07/13/18 History insulin degludec [Tresiba 40 unit SUB-Q DAILY 07/05/18 07/13/18 History FlexTouch U-100] ipratropium bromide 0.02 mg INHALATION TID 07/05/18 07/13/18 History metoprolol tartrate 50 mg PO BID 07/05/18 07/13/18 History morphine 30 mg PO BID 07/05/18 07/13/18 History nitroglycerin [Nitrostat] 0.4 mg SUBLINGUAL Q5-15M PRN 07/05/18 07/13/18 History oxycodone-acetaminophen 1 tab PO Q4-6H PRN 07/05/18 07/13/18 History quetiapine 25 mg PO HS 07/05/18 07/13/18 History umeclidinium-vilanterol [Anoro 1 inh INHALATION Q24H 07/05/18 07/13/18 History Ellipta] Exam Vital signs: Vital Signs 07/13/18 13:51 Temperature 98.0 F Pulse Rate 82 Respiratory Rate 20 Blood Pressure 121/89 Pulse Oximetry 92 L Intake & Output 07/12/18 07/13/18 07/13/18 18:59 06:59 18:59 Weight 79.8 kg Other: Weight On Admission 79.8 kg - Constitutional mild distress - Routine HEENT Exam Head: Present: normocephalic ENT: Present: mucous membranes dry - Routine Neck Exam Present: supple - Routine Respiratory Exam Present: accessory muscle use (Low volumes but no obvious shortness of breath at rest) - Routine Cardiovascular Exam Present: S1, S2 - Routine Abdominal Exam Present: soft (Round, no obvious abdominal pain or tenderness) - Routine Neurological Exam Present: alert (Answer simple questions) <Janeen Mccullough - Last Filed: 07/13/18 15:38> Vital signs: Vital Signs 07/13/18 13:51 07/13/18 17:36 07/13/18 17:59 Temperature 98.0 F 98.8 F Pulse Rate 82 72 81 Respiratory Rate 20 20 Blood Pressure 121/89 122/99 H Pulse Oximetry 92 L 92 L Intake & Output 07/13/18 07/13/18 07/14/18 06:59 18:59 06:59 Intake Total 1200 / 1200 Balance 1200 / 1200 Weight 79.8 kg Intake: Oral 1200 / 1200 Other: # Voids 2 Weight On Admission 79.8 kg <Leeann Manley - Last Filed: 07/13/18 19:56> Results - Labs CBC & Chem 7: 07/13/18 15:05 07/13/18 15:05 Labs: Laboratory Results - last 24 hr 07/13/18 15:05 WBC 8.7 RBC 5.27 Hgb 17.1 H Hct 50.6 H MCV 95.9 MCH 32.5 MCHC 33.8 RDW 15.1 Plt Count 214 MPV 8.2 <Janeen Mccullough - Last Filed: 07/13/18 15:38> - Labs CBC & Chem 7: 07/13/18 15:05 07/13/18 15:05 Labs: Laboratory Results - last 24 hr 07/13/18 07/13/18 07/13/18 15:05 15:05 15:05 WBC 8.7 RBC 5.27 Hgb 17.1 H Hct 50.6 H MCV 95.9 MCH 32.5 MCHC 33.8 RDW 15.1 Plt Count 214 MPV 8.2 PT 9.7 L INR 1.0 APTT 24.6 Sodium 142 Potassium 4.1 Chloride 107 Carbon Dioxide 27.0 Anion Gap 8 BUN 17 Creatinine 1.06 H Estimated GFR 52 L POC Glucose Random Glucose 172 H Calcium 8.8 Total Bilirubin 0.5 AST 54 H ALT 93 H Alkaline Phosphatase 111 Total Protein 7.4 Albumin 3.5 07/13/18 16:33 WBC RBC Hgb Hct MCV MCH MCHC RDW Plt Count MPV PT INR APTT Sodium Potassium Chloride Carbon Dioxide Anion Gap BUN Creatinine Estimated GFR POC Glucose 198 H Random Glucose Calcium Total Bilirubin AST ALT Alkaline Phosphatase Total Protein Albumin <Leeann Manley - Last Filed: 07/13/18 19:56> Assessment and Plan - Plan PET scan shows increased activity at the rectosigmoid junction. Rule out mass/ metastasis 60-year-old female who has been treated for left lung cancer in 2013 and now has right lung cancer recently diagnosed in May 2018. Gastroenterology was consulted to assist with these PET scan findings and to rule out malignancy. Patient denies any previous family history of colon cancer Dyspepsia history of Gerd states symptoms have worsened over the past 2 weeks with burning sensation epigastric region unrelated to food unknown aggregating factors and no obvious relieving factors States EGD many years ago and colonoscopy at least greater than 5 years. Diarrhea onset this a.m. x4 watery dark brown without obvious blood. Patient states she has been off metformin for 2 years but did have symptoms of diarrhea when she was on the medication. Current hemoglobin stable at 17.1, other labs are pending Plan Diet clear liquids for the rest of the p.m. N.p.o. at midnight except for medications needed Consent for EGD colonoscopy to be done in the morning Mag citrate x2 bottles, Dulcolax tablets x4 Monitor labs PPI Supportive care Further recommendations to follow Patient was seen per myself and Dr. Manley, note was written on his behalf <Janeen Mccullough - Last Filed: 07/13/18 15:38> - Plan Seen and examined with [facility], egd/colonoscopy planned for tomorrow. Discussed with Darlene Paul/Rodger. The exam, history, and the medical decision-making described in the above note were completed with the assistance of the mid-level provider. I reviewed and agree with the findings presented. I attest that I had a [id number] encounter with the patient on the same day, and personally performed and documented my assessment and findings in the medical record. <Leeann Manley - Last Filed: 07/13/18 19:56>
[2018-07-13 15:44] LABS: Albumin 3.5 g/dL (3.4-5.0); Anion Gap 8 meq/L (5-15); Aspartate Aminotransferase 54 U/L (15-37); Blood Urea Nitrogen 17 mg/dL (7-18); Calcium 8.8 mg/dL (8.5-10.1); Chloride 107 meq/L (98-107); Glomerular Filtration Rate 52 mL/min (>89); Glucose,Random 172 mg/dL (74-106); Potassium 4.1 meq/L (3.5-5.1); Sodium 142 meq/L (136-145)
[2018-07-13 15:47] LABS: Alanine Aminotransferase 93 U/L (10-53); Alkaline Phosphatase 111 U/L (45-117); Total Protein 7.4 g/dL (6.4-8.2)
[2018-07-13] MEDS ORDERED: Magnesium Citrate Liq 300 ML Bottle PO ONE ×2 (16:00→18:00)
[2018-07-13] MEDS: Insulin NovoLOG Aspart Correctional Sugar Inj SQ SCH ×2 (16:47→20:39)
[2018-07-13] MEDS: Umeclindinium 62.5 MCG/Vilanterol 25 MCG Inhaler INH SCH (16:47)
[2018-07-13] MEDS: Morphine Sulfate 30 MG IR Tablet PO PRN (17:32)
[2018-07-13] MEDS: Metoprolol Tartrate 50 MG Tablet PO SCH (20:30)
[2018-07-13] MEDS: QUEtiapine 25 MG Tablet PO SCH (20:30)
[2018-07-14] MEDS ORDERED: Ketamine Inj 50 MG/5 ML Syringe IV.PUSH ONE (08:25)
--- NOTE | 2018-07-14 09:09 | GIPROC ---
[facility] [address] [facility]. [facility], [address] EGD PROCEDURE REPORT EXAM DATE: 07/14/2018 PATIENT NAME: Lizeth López MR #: [id number] BIRTHDATE: 1955 ATTENDING: Leeann Manley MD ORDER #: [id number] [employer]ORT GOODS DRIER: Peri Laguna Pena, Gabriela, and Sharon Mansfield STATUS: inpatient INDICATIONS: The patient is a 62 yr old female here for an EGD due to history of esophageal reflux PROCEDURE PERFORMED: EGD w/ biopsy MEDICATIONS: None and Per Anesthesia. TOPICAL ANESTHETIC: CONSENT: The patient understands the risks and benefits of the procedure and understands that these risks include, but are not limited to: sedation, allergic reaction, infection, perforation and/or bleeding. Alternative means of evaluation and treatment include, among others: physical exam, x-rays, and/or surgical intervention. The patient elects to proceed with this endoscopic procedure. medical equipment was checked for proper function. Hand hygiene and appropriate measures for infection prevention was taken. After the risks, benefits and alternatives of the procedure were thoroughly explained, Informed consent was verified, confirmed and timeout was successfully executed by the treatment team. The patient was anesthetized with topical anesthesia and the EC-[id number] (Pedi C) endoscope was introduced through the mouth and advanced to the second portion of the duodenum. Retroflexed views revealed no abnormalities The gastroscope was then slowly withdrawn and removed. ESOPHAGUS: There was LA Class A esophagitis noted. A biopsy was performed using cold forceps. Sample sent for histology. STOMACH: There was erythematous moderate gastritis in the gastric body and gastric antrum. 250 cc of fluid suctioned. A biopsy was performed using cold forceps. Sample sent for histology. DUODENUM: The duodenal mucosa appeared normal in the bulb and second portion of the duodenum. ADVERSE EVENTS: There were no complications. IMPRESSIONS: 1. There was LA Class A esophagitis noted; biopsy was performed 2. There was erythematous gastritis in the gastric body and gastric antrum; 250 cc of fluid suctioned; biopsy was performed 3. Normal duodenal mucosa in the bulb and second portion of the duodenum 4. Retroflexed views revealed no abnormalities RECOMMENDATIONS: 1. Await biopsy results. Biopsy results will not be ready for 7-10 days. If you don't hear from us in two weeks, call our office for biopsy results. 2. Anti-reflux regimen 3. Continue PPI PATIENT CONDITION: stable DISPOSITION: Inpatient REPEAT EXAM: Return 1 year EGD pending biopsy results Leeann Manley MD eSigned: Leeann Manley MD 07/14/2018 9:09 AM cc: PATIENT NAME: Maribel Lizeth K MR#: [id number]
--- NOTE | 2018-07-14 09:27 | GIPROC ---
[facility] [address] [facility]. [facility], [address] COLONOSCOPY PROCEDURE REPORT EXAM DATE: 07/14/2018 PATIENT NAME: Lizeth López MR #: [id number] BIRTHDATE: 1955 ENDOSCOPIST: Leeann Manley MD ORDER #: [id number] CHIP MUCKER: Peri Laguna Powers, Victoria, and Heaven Rojas STATUS: inpatient INDICATIONS: The patient is a 62 yr old female here for a colonoscopy due to an abnormal PET and high risk patient with personal history of colonic polyps PROCEDURE PERFORMED: Colonoscopy with biopsy MEDICATIONS: None and Per Anesthesia. PREP QUALITY: The Kendall Bowel Prep Score was Right colon 2, Mid colon 2, and Left colon 1. Total = 5. PREP TYPE:GoLytely ESTIMATED BLOOD LOSS: None CONSENT: The patient understands the risks and benefits of the procedure and understands that these risks include, but are not limited to: sedation, allergic reaction, infection, perforation and/or bleeding. Alternative means of evaluation and treatment include, among others: physical exam, x-rays, and/or surgical intervention. The patient elects to proceed with this endoscopic procedure. medical equipment was checked for proper function. Hand hygiene and appropriate measures for infection prevention was taken. After the risks, benefits and alternatives of the procedure were thoroughly explained, Informed consent was verified, confirmed and timeout was successfully executed by the treatment team. A digital exam revealed external hemorrhoids The Pentax EC-[id number] endoscope was introduced through the anus and advanced to the cecum, which was identified by both the appendix and ileocecal valve. The instrument was then slowly withdrawn as the colon was fully examined. COLON FINDINGS: There was moderate diverticulosis noted in the sigmoid colon. No bleeding was noted from the diverticulosis. Biopsy. A polypoid shaped sessile polyp ranging between 3-7mm in size was found in the rectum. Multiple biopsies were performed using cold forceps. Retroflexed views revealed internal hemorrhoids and Retroflexed views revealed medium internal hemorrhoids The scope was then completely withdrawn from the patient and the procedure terminated. PROCEDURE WITHDRAWAL TIME:6minutes ADVERSE EVENTS: There were no complications. IMPRESSIONS: 1. There was moderate diverticulosis noted in the sigmoid colon 2. Biopsy 3. A sessile polyp ranging between 3-7mm in size was found in the rectum; multiple biopsies were performed using cold forceps 4. Retroflexed views revealed internal hemorrhoids 5. Retroflexed views revealed medium internal hemorrhoids 6. Revealed external hemorrhoids RECOMMENDATIONS: 1. Await biopsy results. Biopsy results will not be ready for 7-10 days. If you don't hear from us in two weeks, call our office for results. 2. Benefiber 2 tsp daily 3. Continue surveillance 4. Yearly hemoccult RECALL: Return 6 months Colonoscopy, pending biopsy results Leeann Manley MD eSigned: Leeann Manley MD 07/14/2018 9:27 AM cc: PATIENT NAME: Lizeth López MR#: [id number]
[2018-07-14] MEDS: Insulin NovoLOG Aspart Correctional Sugar Inj SQ SCH ×4 (11:32→21:39)
[2018-07-14] MEDS: Fenofibrate 145 MG Tablet PO SCH (11:42)
[2018-07-14] MEDS: amLODIPine 5 MG Tablet PO SCH (11:42)
[2018-07-14] MEDS: Metoprolol Tartrate 50 MG Tablet PO SCH ×2 (11:43→21:30)
[2018-07-14] MEDS: Morphine Sulfate 30 MG IR Tablet PO PRN ×2 (11:54→21:30)
--- NOTE | 2018-07-14 12:41 | P.PNIM ---
Subjective Interval history: Follow up: Abnormal PET scan findings of the right lung and rectosigmoid colon Patient is S/P EGD and colonoscopy today with Dr. Manley Offers no new concerns Physical Exam Vital signs: Vital Signs 07/13/18 13:51 07/13/18 17:36 07/13/18 17:59 Temperature 98.0 F 98.8 F Pulse Rate 82 72 81 Respiratory Rate 20 20 Blood Pressure 121/89 122/99 H Pulse Oximetry 92 L 92 L 07/13/18 20:00 07/14/18 00:00 07/14/18 04:00 Temperature 98.1 F 98.3 F 97.5 F L Pulse Rate 82 63 69 Respiratory Rate 18 18 18 Blood Pressure 131/69 101/51 L 119/67 Pulse Oximetry 95 98 96 07/14/18 08:00 07/14/18 09:35 07/14/18 10:53 Temperature 97.6 F 97.2 F L Pulse Rate 70 74 Respiratory Rate 20 18 Blood Pressure 111/65 138/64 Pulse Oximetry 95 99 96 07/14/18 12:00 Temperature 97.9 F Pulse Rate 81 Respiratory Rate 18 Blood Pressure 148/90 H Pulse Oximetry 97 Intake & Output 07/13/18 07/14/18 07/14/18 18:59 06:59 18:59 Intake Total 1200 / 1200 720 / 720 400 / 400 Balance 1200 / 1200 720 / 720 400 / 400 Weight 79.8 kg 79.7 kg Intake: Oral 1200 / 1200 720 / 720 Anesthesia Amount 400 / 400 Other: # Voids 2 2 Date of Last Bowel Movement 07/13/18 07/14/18 # Bowel Movements 1 Weight On Admission 79.8 kg Narrative: GENERAL: NAD, AAOx3 CARDIO: Regular rate and rhythm. RESP: No accessory muscle use. Breath sounds equal bilaterally. ABD: +BS, soft, non-tender, nondistended. H EXT: Extremities without clubbing, cyanosis, or edema. No obvious deformities. NEURO: Awake and alert. No obvious cranial nerve deficits. Motor grossly within normal limits. Five out of 5 muscle strength in the arms and legs. Normal speech. PSYCH: Appropriate mood and affect; insight and judgment normal. Results - Labs CBC & Chem 7: 07/13/18 15:05 07/13/18 15:05 Laboratory Results - last 24 hr 08/07/13/18 07/13/18 15:05 15:05 15:05 WBC 8.7 RBC 5.27 Hgb 17.1 H Hct 50.6 H MCV 95.9 MCH 32.5 MCHC 33.8 RDW 15.1 Plt Count 214 MPV 8.2 PT 9.7 L INR 1.0 APTT 24.6 Sodium 142 Potassium 4.1 Chloride 107 Carbon Dioxide 27.0 Anion Gap 8 BUN 17 Creatinine 1.06 H Estimated GFR 52 L POC Glucose Random Glucose 172 H Calcium 8.8 Total Bilirubin 0.5 AST 54 H ALT 93 H Alkaline Phosphatase 111 Total Protein 7.4 Albumin 3.5 07/13/18 07/13/18 07/13/18 16:33 20:29 22:59 WBC RBC Hgb Hct MCV MCH MCHC RDW Plt Count MPV PT INR APTT Sodium Potassium Chloride Carbon Dioxide Anion Gap BUN Creatinine Estimated GFR POC Glucose 198 H 115 H 57 L Random Glucose Calcium Total Bilirubin AST ALT Alkaline Phosphatase Total Protein Albumin 07/13/18 07/14/18 07/14/18 23:31 01:15 07:43 WBC RBC Hgb Hct MCV MCH MCHC RDW Plt Count MPV PT INR APTT Sodium Potassium Chloride Carbon Dioxide Anion Gap BUN Creatinine Estimated GFR POC Glucose 126 H 125 H 115 H Random Glucose Calcium Total Bilirubin AST ALT Alkaline Phosphatase Total Protein Albumin 07/14/18 11:57 WBC RBC Hgb Hct MCV MCH MCHC RDW Plt Count MPV PT INR APTT Sodium Potassium Chloride Carbon Dioxide Anion Gap BUN Creatinine Estimated GFR POC Glucose 129 H Random Glucose Calcium Total Bilirubin AST ALT Alkaline Phosphatase Total Protein Albumin - Procedures EGD/colonoscopy 07/[address] Manley Assessment and Plan - Assessment (1) Abnormal PET of right lung Code(s): R94.2 - Abnormal results of pulmonary function studies Status: Acute Plan: Abnormal PET scan findings of the right lung and rectosigmoid colon Hx of lung cancer COPD - Pt is a 62 y/o female with hx of lung cancer, COPD, diabetes, HTN, chronic back pain and GERD. - She was admitted [place] [facility] [place] for further evaluation of abnormal findings on a recent PET/CT. Pt had recently been seen in the in the ER at [facility] on [place]/30/[address] chest which noted a new 10mm right upper lobe lung nodule. She followed up with Oncology, Dr. Wilson, who sent her for a PET/ CT. The PET/CT on 07/06/18 noted increased activity in the right upper lobe characteristic of malignancy and increased activity in the colon in the rectosigmoid junction. Pt had been planned for a CT guided lung biopsy and a sigmoidoscopy to evaluate the findings in the colon. It was felt that the pt was at high risk for developing pneumothorax following the biopsy in the setting of her significant COPD. We have coordinated care with GI for the pt to have the sigmoidoscopy tomorrow and lung biopsy the following day. - Appreciate Consult from GI. - S/P EGD/colonoscopy 07/[address] Manley EGD: 1. There was LA Class A esophagitis noted; biopsy was performed 2. There was erythematous gastritis in the gastric body and gastric antrum; 250cc of fluid suctioned; biopsy was performed 3. Normal duodenal mucosa in the bulb and second portion of the duodenum 4. Retroflexed views revealed no abnormalities GI Recommendations: 1. Await biopsy results. Biopsy results will not be ready for 7-10 days. If you don't hear from us in two weeks, call our office for biopsy results. 2. Anti-reflux regimen 3. Continue PPI 4. Return 1 year EGD pending biopsy results - Colonoscopy: 1. There was moderate diverticulosis noted in the sigmoid colon 2. Biopsy 3. A sessile polyp ranging between 3-7mm in size was found in the rectum; multiple biopsies were performed using cold forceps 4. Retroflexed views revealed internal hemorrhoids 5. Retroflexed views revealed medium internal hemorrhoids 6. Revealed external hemorrhoids GI recommendations: 1. Await biopsy results. Biopsy results will not be ready for 7-10 days. If you don't hear from us in two weeks, call our office for results. 2. Benefiber 2 tsp daily 3. Continue surveillance 4. Yearly Hemoccult 5. Return 6 months Colonoscopy, pending biopsy results - Pt will be NPO after MN - Consult IR for biopsy of the lung nodule likely on - Eleni PRN - Cont. Anoro Ellipta HTN - Home meds resumed Diabetes Mellitus - Hold home meds - NovoLog SSI - Accu checks - Pt may need Levemir added once she is eating better. Hyperlipidemia - Home meds continued GERD Gastroparesis - PPI (2) Abnormal PET scan of colon Code(s): R94.8 - Abnormal results of function studies of other organs and systems Status: Acute (3) Hx of cancer of lung Code(s): Z85.118 - Personal history of other malignant neoplasm of bronchus and lung Status: Chronic (4) COPD (chronic obstructive pulmonary disease) Code(s): J44.9 - Chronic obstructive pulmonary disease, unspecified Status: Chronic (5) Diabetes Code(s): E11.9 - Type 2 diabetes mellitus without complications Status: Chronic (6) HTN (hypertension) Code(s): I10 - Essential (primary) hypertension Status: Chronic - Attending Attestation Patient examined. Assessment and plan formulated with Funmilayo MOTLEY I agree with the above.
[2018-07-14] MEDS: Umeclindinium 62.5 MCG/Vilanterol 25 MCG Inhaler INH SCH (19:42)
[2018-07-14] MEDS ORDERED: clonazePAM 0.5 MG Tablet PO ONE (21:00)
[2018-07-14] MEDS: QUEtiapine 25 MG Tablet PO SCH (21:30)
--- NOTE | 2018-07-14 21:33 | ECG ---
Date Performed: 07/13/2018 Time Performed: 19:50:32 PTAGE: 62 years EKG: Sinus rhythm ST DEVIATION AND MODERATE T-WAVE ABNORMALITY, CONSIDER ANTERIOR ISCHEMIA ABNORMAL ECG PREVIOUS TRACING : 11/26/2017 17.47 Since the previous tracing, no significant change noted DOCTOR: Darius Boykin Interpretating Date/Time 07/14/2018 21:31:29
[2018-07-15] MEDS: Fenofibrate 145 MG Tablet PO SCH (08:15)
[2018-07-15] MEDS: Morphine Sulfate 30 MG IR Tablet PO PRN ×2 (08:15→19:29)
[2018-07-15] MEDS: Metoprolol Tartrate 50 MG Tablet PO SCH ×2 (08:15→22:07)
[2018-07-15] MEDS: amLODIPine 5 MG Tablet PO SCH (08:15)
[2018-07-15] MEDS: Insulin NovoLOG Aspart Correctional Sugar Inj SQ SCH ×4 (08:22→22:12)
--- NOTE | 2018-07-15 09:40 | P.PNGI ---
Subjective Interval history: Pt resting in bed, family at bedside. States her stomach feels like it is burning today, has not eaten in 3 days. Currently NPO for lung biopsy today. <Melina Pattne - Last Filed: 07/15/18 09:35> Physical Exam Vital signs: Vital Signs 07/14/18 10:53 07/14/18 12:00 07/14/18 16:00 Temperature 97.9 F 97.9 F Pulse Rate 87 66 Respiratory Rate 18 18 Blood Pressure 148/90 H Pulse Oximetry 96 97 97 07/14/18 17:13 07/14/18 17:14 07/14/18 21:20 Temperature 97.9 F 97.9 F Pulse Rate 73 77 Respiratory Rate 18 18 17 Blood Pressure 123/74 139/74 Pulse Oximetry 96 96 07/15/18 00:00 07/15/18 00:22 07/15/18 03:18 Temperature 98.1 F Pulse Rate 75 81 Respiratory Rate 17 15 Blood Pressure 122/59 L Pulse Oximetry 96 07/15/18 04:00 07/15/18 06:30 07/15/18 08:00 Temperature 97.6 F 97.7 F Pulse Rate 74 78 73 Respiratory Rate 18 20 Blood Pressure 146/67 H 124/75 Pulse Oximetry 94 L 94 L Intake & Output 07/14/18 07/15/18 07/15/18 18:59 06:59 18:59 Intake Total 1120 / 1120 Output Total 400 / 400 Balance 1120 / 1120 -400 / -400 Weight 79.7 kg Intake: Oral 720 / 720 Anesthesia Amount 400 / 400 Output: Urine 400 / 400 Other: # Voids 1 Date of Last Bowel Movement 07/14/18 - Constitutional no acute distress - Routine HEENT Exam Head: Present: normocephalic, atraumatic - Routine Respiratory Exam Absent: accessory muscle use - Routine Abdominal Exam Present: soft, normoactive bowel sounds. Absent: tenderness, distended - Routine Skin Exam Present: dry, warm - Routine Neurological Exam Present: alert, oriented X3 <Melina Patten - Last Filed: 07/15/18 09:35> Vital signs: Vital Signs 07/14/18 16:00 07/14/18 17:13 07/14/18 17:14 Temperature 97.9 F 97.9 F Pulse Rate 66 73 Respiratory Rate 18 18 18 Blood Pressure 123/74 Pulse Oximetry 97 96 07/14/18 21:20 07/15/18 00:00 07/15/18 00:22 Temperature 97.9 F 98.1 F Pulse Rate 77 75 81 Respiratory Rate 17 17 Blood Pressure 139/74 122/59 L Pulse Oximetry 96 96 07/15/18 03:18 07/15/18 04:00 07/15/18 06:30 Temperature 97.6 F Pulse Rate 74 78 Respiratory Rate 15 18 Blood Pressure 146/67 H Pulse Oximetry 94 L 07/15/18 08:00 07/15/18 12:00 07/15/18 14:40 Temperature 97.7 F 98.6 F Pulse Rate 73 79 70 Respiratory Rate 20 18 20 Blood Pressure 124/75 119/76 109/67 Pulse Oximetry 94 L 99 90 L 07/15/18 14:55 Temperature Pulse Rate 62 Respiratory Rate 20 Blood Pressure 100/56 L Pulse Oximetry 95 Intake & Output 07/14/18 07/15/18 07/15/18 18:59 06:59 18:59 Intake Total 1120 / 1120 Output Total 400 / 400 Balance 1120 / 1120 -400 / -400 Weight 79.7 kg Intake: Oral 720 / 720 Anesthesia Amount 400 / 400 Output: Urine 400 / 400 Other: # Voids 1 Date of Last Bowel Movement 07/14/18 07/14/18 <Leeann Manley - Last Filed: 07/15/18 15:31> Results - Labs CBC & Chem 7: 07/13/18 15:05 07/13/18 15:05 Laboratory Results - last 24 hr 07/14/18 07/14/18 07/14/18 11:57 19:22 21:23 POC Glucose 129 H 208 H 273 H 07/15/18 08:13 POC Glucose 215 H - Procedures EGD/colonoscopy 07/[address] Manley <Melina Patten - Last Filed: 07/15/18 09:35> - Labs CBC & Chem 7: 07/13/18 15:05 07/13/18 15:05 Laboratory Results - last 24 hr 07/14/18 07/14/18 07/15/18 19:22 21:23 08:13 POC Glucose 208 H 273 H 215 H 07/15/18 11:05 POC Glucose 170 H - Imaging Impressions Lung Biopsy CT 07/15/18 00:00 CONCLUSION: 1. CT-guided biopsy as above with small right apical pneumothorax. <Leeann Manley - Last Filed: 07/15/18 15:31> Assessment and Plan - Plan Assessment: - Outpatient PET scan with increased activity in rectosigmoid junction Pt with known lung cancer, followed by oncology. - Complaints of heartburn with history of GERD - burning sensation in epigastric region EGD (07/14) There was LA Class A esophagitis noted; biopsy was performed There was erythematous gastritis in the gastric body and gastric antrum; 250 cc of fluid suctioned; biopsy was performed. Normal duodenal mucosa in the bulb and second portion of the duodenum. Retroflexed views revealed no abnormalities. Colonoscopy (07/14) There was moderate diverticulosis noted in the sigmoid colon, Biopsy. A sessile polyp ranging between 3-7mm in size was found in the rectum; multiple biopsies were performed using cold forceps. Internal and external hemorrhoids Plan: EGD and colon biopsies pending Protonix NPO for lung biopsy today Our service will sign off Have pt follow up with GI after DC Pt has been seen and examined by myself and Dr. Manley and this note is written on his behalf <Melina Patten - Last Filed: 07/15/18 09:35> - Plan Seen and examined with PROJECTOR OPERATOR, s/p egd/colonoscopy. No evidence of cancer. Lung biopsy today. GI will sign off. FU with gi upon dc please. The exam, history, and the medical decision-making described in the above note were completed with the assistance of the mid-level provider. I reviewed and agree with the findings presented. I attest that I had a [id number] encounter with the patient on the same day, and personally performed and documented my assessment and findings in the medical record. <Leeann Manley - Last Filed: 07/15/18 15:31>
--- NOTE | 2018-07-15 09:49 | P.PNIM ---
Subjective Interval history: Follow up: Abnormal PET scan findings of the right lung and rectosigmoid colon Patient is S/P EGD and colonoscopy today with Dr. Manley C/O feeling hungry currently NPO for lung Bx with IR Physical Exam Vital signs: Vital Signs 07/14/18 10:53 07/14/18 12:00 07/14/18 16:00 Temperature 97.9 F 97.9 F Pulse Rate 87 66 Respiratory Rate 18 18 Blood Pressure 148/90 H Pulse Oximetry 96 97 97 07/14/18 17:13 07/14/18 17:14 07/14/18 21:20 Temperature 97.9 F 97.9 F Pulse Rate 73 77 Respiratory Rate 18 18 17 Blood Pressure 123/74 139/74 Pulse Oximetry 96 96 07/15/18 00:00 07/15/18 00:22 07/15/18 03:18 Temperature 98.1 F Pulse Rate 75 81 Respiratory Rate 17 15 Blood Pressure 122/59 L Pulse Oximetry 96 07/15/18 04:00 07/15/18 06:30 07/15/18 08:00 Temperature 97.6 F 97.7 F Pulse Rate 74 78 73 Respiratory Rate 18 20 Blood Pressure 146/67 H 124/75 Pulse Oximetry 94 L 94 L Intake & Output 07/14/18 07/15/18 07/15/18 18:59 06:59 18:59 Intake Total 1120 / 1120 Output Total 400 / 400 Balance 1120 / 1120 -400 / -400 Weight 79.7 kg Intake: Oral 720 / 720 Anesthesia Amount 400 / 400 Output: Urine 400 / 400 Other: # Voids 1 Date of Last Bowel Movement 07/14/18 Narrative: GENERAL: NAD, AAOx3 CARDIO: Regular rate and rhythm. RESP: No accessory muscle use. Breath sounds equal bilaterally. ABD: +BS, soft, non-tender, nondistended. H EXT: Extremities without clubbing, cyanosis, or edema. No obvious deformities. NEURO: Awake and alert. No obvious cranial nerve deficits. Motor grossly within normal limits. Five out of 5 muscle strength in the arms and legs. Normal speech. PSYCH: Appropriate mood and affect; insight and judgment normal. Results - Labs CBC & Chem 7: 07/13/18 15:05 07/13/18 15:05 Laboratory Results - last 24 hr 07/14/18 07/14/1818 11:57 19:22 21:23 POC Glucose 129 H 208 H 273 H 07/15/18 08:13 POC Glucose 215 H - Procedures EGD/colonoscopy 07/[address] Manley Assessment and Plan - Assessment (1) Abnormal PET of right lung Code(s): R94.2 - Abnormal results of pulmonary function studies Status: Acute Plan: Abnormal PET scan findings of the right lung and rectosigmoid colon Hx of lung cancer COPD - Pt is a 62 y/o female with hx of lung cancer, COPD, diabetes, HTN, chronic back pain and GERD. - She [place] [facility] [place] for further evaluation of abnormal findings on a recent PET/CT. Pt had recently been seen in the in the ER [place] [facility] [place] chest which noted a new 10mm right upper lobe lung nodule. She followed up with Oncology, Dr. Wilson, who sent her for a PET/ CT. The PET/CT on 07/06/18 noted increased activity in the right upper lobe characteristic of malignancy and increased activity in the colon in the rectosigmoid junction. Pt had been planned for a CT guided lung biopsy and a sigmoidoscopy to evaluate the findings in the colon. It was felt that the pt was at high risk for developing pneumothorax following the biopsy in the setting of her significant COPD. We have coordinated care with GI for the pt to have the sigmoidoscopy tomorrow and lung biopsy the following day. - Appreciate Consult from GI. - S/P EGD/colonoscopy 07/[address] Manley EGD: 1. There was LA Class A esophagitis noted; biopsy was performed 2. There was erythematous gastritis in the gastric body and gastric antrum; 250cc of fluid suctioned; biopsy was performed 3. Normal duodenal mucosa in the bulb and second portion of the duodenum 4. Retroflexed views revealed no abnormalities GI Recommendations: 1. Await biopsy results. Biopsy results will not be ready for 7-10 days. If you don't hear from us in two weeks, call our office for biopsy results. 2. Anti-reflux regimen 3. Continue PPI 4. Return 1 year EGD pending biopsy results - Colonoscopy: 1. There was moderate diverticulosis noted in the sigmoid colon 2. Biopsy 3. A sessile polyp ranging between 3-7mm in size was found in the rectum; multiple biopsies were performed using cold forceps 4. Retroflexed views revealed internal hemorrhoids 5. Retroflexed views revealed medium internal hemorrhoids 6. Revealed external hemorrhoids GI recommendations: 1. Await biopsy results. Biopsy results will not be ready for 7-10 days. If you don't hear from us in two weeks, call our office for results. 2. Benefiber 2 tsp daily 3. Continue surveillance 4. Yearly Hemoccult 5. Return 6 months Colonoscopy, pending biopsy results - NPO - Plan for biopsy of the lung nodule with IR today - Eleni PRN - Cont. Anoro Ellipta HTN - Home meds resumed Diabetes Mellitus - Hold home meds - NovoLog SSI - Accu checks - Pt may need Levemir added once she is eating better. Hyperlipidemia - Home meds continued GERD Gastroparesis - PPI (2) Abnormal PET scan of colon Code(s): R94.8 - Abnormal results of function studies of other organs and systems Status: Acute (3) Hx of cancer of lung Code(s): Z85.118 - Personal history of other malignant neoplasm of bronchus and lung Status: Chronic (4) COPD (chronic obstructive pulmonary disease) Code(s): J44.9 - Chronic obstructive pulmonary disease, unspecified Status: Chronic (5) Diabetes Code(s): E11.9 - Type 2 diabetes mellitus without complications Status: Chronic (6) HTN (hypertension) Code(s): I10 - Essential (primary) hypertension Status: Chronic - Attending Attestation Patient examined. Assessment and plan formulated with Funmilayo MOTLEY I agree with the above.
[2018-07-15] MEDS: Gabapentin 300 MG Capsule PO SCH ×2 (10:11→22:07)
--- NOTE | 2018-07-15 11:59 | P.DS ---
<Funmilayo Worthington W - Last Filed: 07/16/18 10:54> Date of admission: 07/13/18 13:15 Primary care physician: Donnell Paul MD, PhD Attending physician on discharge: Levon Soares Anticipated date of discharge: 07/15/18 Brief History from admission: Mrs. López is a pleasant 62 y/o female with hx of lung cancer, COPD, diabetes , HTN, chronic back pain and GERD. She was admitted to [facility] on 07/13/18 for further evaluation of abnormal findings on a recent PET/CT. Pt had recently been seen in the in the ER at [facility] on 05/30/[address] chest which noted a new 10mm right upper lobe lung nodule. She followed up with Oncology, Dr. Wilson, who sent her for a PET/CT. The PET/CT on 07/06/18 noted increased activity in the right upper lobe characteristic of malignancy and increased activity in the colon in the rectosigmoid junction. Pt had been planned for a CT guided lung biopsy and a sigmoidoscopy to evaluate the findings in the colon. It was felt that the pt was at high risk for developing pneumothorax following the biopsy in the setting of her significant COPD. We have coordinated care with GI for the pt to have the sigmoidoscopy tomorrow and lung biopsy the following day. Past Medical Hx: COPD Lung cancer, originally diagnosed in 2012, pathology with adenocarcinoma with sarcomatoid elements. s/p chemo Diabetes GERD HTN Hyperlipidemia Chronic back pain Diabetic gastroparesis Diabetic neuropathy Hx of Hepatitis C IBS Depression/Anxiety Past Surgical Hx: Left upper lobe wedge resection/left upper lobectomy/mediastinal lymph node dissection on 10/06/[address] Souza Complete hysterectomy with BSO Appendectomy Colonoscopy on 12/06/2014 --> moderate diverticulosis in the sigmoid colon, sessile polyp in the sigmoid colon. Family Hx: Noncontributory Social Hx: Hx of tobacco use, quit in 2014 Denies any alcohol use Pt is and lives alone. DS: Diagnosis - Discharge Diagnosis (1) Abnormal PET of right lung Status: Acute (2) Abnormal PET scan of colon Status: Acute (3) Hx of cancer of lung Status: Chronic (4) COPD (chronic obstructive pulmonary disease) Status: Chronic (5) Diabetes Status: Chronic (6) HTN (hypertension) Status: Chronic DS: Medications - Discharge Medications Prescriptions: pantoprazole [Protonix] 40 mg PO BID 30 Days #60 tab DS: Summary Hospital Course: Abnormal PET scan findings of the right lung and rectosigmoid colon Hx of lung cancer COPD - Pt is a 62 y/o female with hx of lung cancer, COPD, diabetes, HTN, chronic back pain and GERD. - She was admitted to [facility] on 07/13/18 for further evaluation of abnormal findings on a recent PET/CT. Pt had recently been seen in the in the ER at [facility] on 05/30/[address] chest which noted a new 10mm right upper lobe lung nodule. She followed up with Oncology, Dr. Wilson, who sent her for a PET/ CT. The PET/CT on 07/06/18 noted increased activity in the right upper lobe characteristic of malignancy and increased activity in the colon in the rectosigmoid junction. Pt had been planned for a CT guided lung biopsy and a sigmoidoscopy to evaluate the findings in the colon. It was felt that the pt was at high risk for developing pneumothorax following the biopsy in the setting of her significant COPD. We have coordinated care with GI for the pt to have the sigmoidoscopy tomorrow and lung biopsy the following day. - Appreciate Consult from GI. - S/P EGD/colonoscopy 07/[address] Manley EGD: 1. There was LA Class A esophagitis noted; biopsy was performed 2. There was erythematous gastritis in the gastric body and gastric antrum; 250cc of fluid suctioned; biopsy was performed 3. Normal duodenal mucosa in the bulb and second portion of the duodenum 4. Retroflexed views revealed no abnormalities GI Recommendations: 1. Await biopsy results. Biopsy results will not be ready for 7-10 days. If you don't hear from us in two weeks, call our office for biopsy results. 2. Anti-reflux regimen 3. Continue PPI 4. Return 1 year EGD pending biopsy results - Colonoscopy: 1. There was moderate diverticulosis noted in the sigmoid colon 2. Biopsy 3. A sessile polyp ranging between 3-7mm in size was found in the rectum; multiple biopsies were performed using cold forceps 4. Retroflexed views revealed internal hemorrhoids 5. Retroflexed views revealed medium internal hemorrhoids 6. Revealed external hemorrhoids GI recommendations: 1. Await biopsy results. Biopsy results will not be ready for 7-10 days. If you don't hear from us in two weeks, call our office for results. 2. Benefiber 2 tsp daily 3. Continue surveillance 4. Yearly Hemoccult 5. Return 6 months Colonoscopy, pending biopsy results - S/P biopsy of the lung nodule with IR 07/15/18 - 07/15 patient developed small stable pneumothorax post procedure, pneumothorax resolved 07/16 CXR no pneumothorax - Duonebs PRN - Cont. Anoro Ellipta HTN - Home meds resumed Diabetes Mellitus - Hold home meds - NovoLog SSI - Accu checks - Pt may need Levemir added once she is eating better. Hyperlipidemia - Home meds continued GERD Gastroparesis - PPI - Time Spent with Patient Total time spent providing and/or coordinating discharge services: Greater than 30 minutes - Quality: VTE Deep Vein Thrombosis/Pulmonary Embolism Present on Admission: No Exam Vital signs: Vital Signs 07/14/18 12:00 07/14/18 16:00 07/14/18 17:13 Temperature 97.9 F 97.9 F 97.9 F Pulse Rate 87 66 73 Respiratory Rate 18 18 18 Blood Pressure 148/90 H 123/74 Pulse Oximetry 97 97 96 07/14/18 17:14 07/14/18 21:20 07/15/18 00:00 Temperature 97.9 F Pulse Rate 77 75 Respiratory Rate 18 17 Blood Pressure 139/74 Pulse Oximetry 96 07/15/18 00:22 07/15/18 03:18 07/15/18 04:00 Temperature 98.1 F Pulse Rate 81 74 Respiratory Rate 17 15 Blood Pressure 122/59 L Pulse Oximetry 96 07/15/18 06:30 07/15/18 08:00 Temperature 97.6 F 97.7 F Pulse Rate 78 73 Respiratory Rate 18 20 Blood Pressure 146/67 H 124/75 Pulse Oximetry 94 L 94 L Intake & Output 07/14/18 07/15/18 07/15/18 18:59 06:59 18:59 Intake Total 1120 / 1120 Output Total 400 / 400 Balance 1120 / 1120 -400 / -400 Weight 79.7 kg Intake: Oral 720 / 720 Anesthesia Amount 400 / 400 Output: Urine 400 / 400 Other: # Voids 1 Date of Last Bowel Movement 07/14/18 Narrative: GENERAL: NAD, AAOx3 CARDIO: Regular rate and rhythm. RESP: No accessory muscle use. Breath sounds equal bilaterally. ABD: +BS, soft, non-tender, nondistended. EXT: Extremities without clubbing, cyanosis, or edema. No obvious deformities. NEURO: Awake and alert. No obvious cranial nerve deficits. Motor grossly within normal limits. Five out of 5 muscle strength in the arms and legs. Normal speech. PSYCH: Appropriate mood and affect; insight and judgment normal. Results Procedures completed during hospitalization: EGD/colonoscopy 07/[address] Manley lung bx with IR 07/15 Pending studies at discharge: Pending at discharge 07/14/18 16:49 Surgical [PTH] Routine Labs on day of discharge: Labs from last 24 hours 07/15/18 07/15/18 07/14/18 11:05 08:13 21:23 POC Glucose 170 H 215 H 273 H 07/14/18 07/14/18 19:22 11:57 POC Glucose 208 H 129 H <Levon Soares - Last Filed: 07/16/18 11:41> Date of admission: 07/13/18 13:15 Primary care physician: Donnell Paul MD, PhD DS: Diagnosis - Discharge Diagnosis (1) Abnormal PET of right lung Status: Acute (2) Abnormal PET scan of colon Status: Acute (3) Hx of cancer of lung Status: Chronic (4) COPD (chronic obstructive pulmonary disease) Status: Chronic (5) Diabetes Status: Chronic (6) HTN (hypertension) Status: Chronic DS: Summary Hospital Course: Patient examined. Assessment and plan formulated with Funmilayo Worthington PA-C. I agree with the above. - Time Spent with Patient Total time spent providing and/or coordinating discharge services: Greater than 30 minutes Exam Vital signs: Vital Signs 07/15/18 12:00 07/15/18 14:40 07/15/18 14:55 Temperature 98.6 F Pulse Rate 79 70 62 Respiratory Rate 18 20 20 Blood Pressure 119/76 109/67 100/56 L Pulse Oximetry 99 90 L 95 07/15/18 15:25 07/15/18 15:55 07/15/18 17:45 Temperature Pulse Rate 60 64 68 Respiratory Rate 20 20 20 Blood Pressure 138/71 110/65 127/69 Pulse Oximetry 94 L 94 L 94 L 07/15/18 20:00 07/16/18 00:00 07/16/18 00:32 Temperature 98.2 F 98.1 F Pulse Rate 75 73 65 Respiratory Rate 18 17 Blood Pressure 133/100 H 96/46 L Pulse Oximetry 95 94 L 07/16/18 00:36 07/16/18 01:09 07/16/18 04:00 Temperature Pulse Rate 68 Respiratory Rate 16 Blood Pressure 107/65 Pulse Oximetry 07/16/18 04:07 07/16/18 08:00 Temperature 98.7 F 97.8 F Pulse Rate 76 64 Respiratory Rate 16 20 Blood Pressure 99/57 L 114/65 Pulse Oximetry 94 L 93 L Intake & Output 07/15/18 07/16/18 07/16/18 18:59 06:59 18:59 Intake Total 0 / 0 248 / 248 Output Total 700 / 700 Balance 0 / 0 -452 / -452 Weight 80 kg Intake: Oral 0 / 0 248 / 248 Output: Urine 700 / 700 Other: # Voids 3 Date of Last Bowel Movement 07/14/18 07/15/18 Results Pending studies at discharge: Pending at discharge 07/14/18 16:49 Surgical [PTH] Routine Labs on day of discharge: Labs from last 24 hours 07/16/18 07/15/18 08:08 22:05 POC Glucose 208 H 259 H - Impressions ITS Impressions Lung Biopsy CT 07/15/18 00:00 CONCLUSION: 1. CT-guided biopsy as above with small right apical pneumothorax. Chest X-Ray 07/16/18 06:00 CONCLUSION: Negative examination. Discharge Plan - Discharge Order Discharge Orders: Discharge Order (Routine); Ordered 07/16/18 Ordered By: Funmilayo Worthington - Physicians Team Primary Care Provider: Donnell Paul Attending Provider: Levon Soares Other Providers: Leeann Manley MD - Rxs /Orders / Referrals /Forms Prescriptions: New pantoprazole [Protonix] 40 mg Tablet,Delayed Release (Dr/Ec) 40 mg PO BID 30 Days Qty: 60 RF: 0 Continue albuterol sulfate 0.63 mg/3 mL Solution For Nebulization 0.63 mg INHALATION TID MDD XX PRN (Reason: Chest Pain) amlodipine 5 mg Tablet 5 mg PO DAILY aspirin [Aspir-81] 81 mg Tablet,Delayed Release (Dr/Ec) 81 mg PO DAILY calcitonin (salmon) 200 unit/actuation Battiest,Non-Aerosol 1 spray INTRANASAL (ALT) DAILY calcitonin (salmon) 200 unit/actuation Battiest,Non-Aerosol clonazepam 0.25 mg Tablet,Disintegrating 0.5 mg PO BID empagliflozin [Jardiance] 25 mg Tablet 25 mg PO DAILY fenofibrate 50 mg Capsule 145 mg PO DAILY gabapentin 300 mg Capsule 300 mg PO BID glimepiride 4 mg Tablet 4 mg PO BID insulin degludec [Tresiba FlexTouch U-100] 100 unit/mL (3 mL) Insulin Pen 40 unit SUB-Q DAILY ipratropium bromide 0.02 % Solution 0.02 mg Inhalation TID metoprolol tartrate 50 mg Tablet 50 mg PO BID morphine 30 mg Capsule, Er Multiphase 24 Hr 30 mg PO BID nitroglycerin [Nitrostat] 0.4 mg Tablet, Sublingual 0.4 mg SUBLINGUAL Q5-15M PRN (Reason: Cardiac Arrhythmia) oxycodone-acetaminophen 5-325 mg Tablet 1 tab PO Q4-6H PRN (Reason: Chest Pain) quetiapine 25 mg Tablet 25 mg PO HS umeclidinium-vilanterol [Anoro Ellipta] 62.5-25 mcg/actuation Blister With Device 1 inh INHALATION Q24H (DME) Contour Test Strips Referrals: Leeann Manley MD [Physician] - See Instructions (follow up in 2 weeks) Amarilis Wilson [Physician] - See Instructions (follow up in 1 week) Donnell Paul MD, PhD [Primary Care Provider] - See Instructions (follow up in 1 week) - Discharge Instructions Patient Printed Instructions: Pantoprazole (By mouth), Needle Biopsy of the Lung (DC), Colonoscopy (DC)
[2018-07-15] MEDS ORDERED: fentaNYL Citrate Inj 100 MCG/2 ML Ampul ONE ×2 (13:05→14:00)
--- NOTE | 2018-07-15 14:48 | CT ---
EXAM DATE: 07/15/2018 2:44 PM EDT AGE/SEX: 62 years / Female INDICATIONS: Right lung nodule. CLINICAL DATA: This is the patient's initial encounter. Patient reports that signs and symptoms have been present for 1 day and indicates a pain score of 0/10. MEDICAL/SURGICAL HISTORY: Carcinoma, ovarian. Carcinoma, lung. Chronic obstructive pulmonary disease. Appendectomy. Hysterectomy. Left lung lobectomy COMPARISON: [facility], CT CHEST W CONTRAST, 05/30/2018. . BIOPSY SITE: Right lung MEDICATION(S): 3.5mg midazolam (Versed) IV 175mcg fentanyl (Sublimaze) IV DEVICE(S): 20 gauge BARD biopsy needle Five core specimen(s) sent to the laboratory for pathologic evaluation. . . PROCEDURE: CT guided Right lung biopsy Prior to the procedure informed consent was obtained. Any appropriate prior imaging studies were rev iewed. Using automated exposure control and adjustment of the mA and/or kV according to patient size , radiation dose was kept as low as reasonably achievable to obtain optimal diagnostic quality images . DICOM format image data is available electronically for review and comparison. The site was prepped in a sterile fashion. Full sterile technique was used, including cap, mask, jennifer rile gloves and gown and a large sterile sheet. Hand hygiene and 2% chlorhexidine and/or betadine/al cohol prep was utilized per protocol for cutaneous antisepsis. The skin and subcutaneous tissues wer e infiltrated with local anesthetic solution. With CT guidance the previously identified target was localized. Biopsy was performed using the presc ribed needle as above. Adequate hemostasis was obtained with compression at the puncture site. Follow-up CT scan reveals no pneumothorax. Conscious sedation was performed with the prescribed dosages and duration as above in the presence of an independent trained radiology nurse to assist in the monitoring of the patient. EKG and oximetry remained stable throughout the procedure. The patient tolerated the procedure well and there were no complications. The patient was sent to Radiology Outpatient Unit in stable condition. FINDINGS: A subcentimeter nodule in the right upper lobe was localized. Multiple passes were obtained. A small pneumothorax was present following biopsy CONCLUSION: 1. CT-guided biopsy as above with small right apical pneumothorax. Electronically signed by: Louie Severino MD 07/15/2018 2:46 PM EDT
--- NOTE | 2018-07-15 15:32 | P.RAD ---
Post CT Procedure Prog Note - Procedure Information Procedure Date: 07/15/18 Supervising Radiologist: Louie Severino MD Anesthesia: Conscious Sedation - Plan of Activity Patient to Unit: Nursing Unit Patient condition: Good See PACS Report for procedural detail/treatment. Biopsy CT right Lung Specimen: Core Biopsy
--- NOTE | 2018-07-15 15:59 | XR ---
EXAM DATE: 07/15/2018 3:53 PM EDT AGE/SEX: 62 years / Female INDICATIONS: Post right side lung biopsy. CLINICAL DATA: This is the patient's initial encounter. Patient reports that signs and symptoms have been present for 1 day and indicates a pain score of 3/10. MEDICAL/SURGICAL HISTORY: Hypertension. Chronic obstructive pulmonary disease. Myocardial inf arction. Diabetes. . Left lobectomy. COMPARISON: [facility], CHEST SINGLE AP, 03/16/2017. . FINDINGS: There is a minimally greater than 1 cm right apical pneumothorax. Left lung is clear and well aerated . Cardiac contours are satisfactory. CONCLUSION: Small right apical pneumothorax. Electronically signed by: Peter Clark MD 07/15/2018 3:58 PM EDT
[2018-07-15] MEDS: Umeclindinium 62.5 MCG/Vilanterol 25 MCG Inhaler INH SCH (17:07)
--- NOTE | 2018-07-15 17:33 | XR ---
EXAM DATE: 07/15/2018 5:28 PM EDT AGE/SEX: 62 years / Female INDICATIONS: Post right side lung biopsy. Evaluate for pneumothorax. CLINICAL DATA: This is the patient's subsequent encounter. Patient reports that signs and symptoms h ave been present for 1 day and indicates a pain score of 0/10. MEDICAL/SURGICAL HISTORY: . Hypertension. Chronic obstructive pulmonary disease. Myocardial inf arction. Diabetes. . Left lobectomy. COMPARISON: [facility], CT BIOPSY LUNG RIGHT, 07/15/2018. [facility], CHEST EXPIRATION ONLY, 07/15/2018. . FINDINGS: Stable small right apical pneumothorax with 1 cm separation. No change compared to the prior examinat ion. There is a small pulmonary nodule in the right upper lung. Otherwise, the lungs are grossly reena r. Heart size is stable. No definite pleural effusions. CONCLUSION: Stable small right apical pneumothorax with 1 cm separation. Electronically signed by: Adolph Cohen MD 07/15/2018 5:32 PM EDT
[2018-07-15] MEDS: QUEtiapine 25 MG Tablet PO SCH (22:07)
--- NOTE | 2018-07-16 05:19 | XR ---
EXAM DATE: 07/16/2018 4:58 AM EDT AGE/SEX: 62 years / Female INDICATIONS: Please evaluate pneumothorax. CLINICAL DATA: This is the patient's subsequent encounter. Patient reports that signs and symptoms h ave been present for 2 days and indicates a pain score of 0/10. MEDICAL/SURGICAL HISTORY: . Hypertension. Chronic obstructive pulmonary disease. Myocardial inf arction. Diabetes. . Left lobectomy. COMPARISON: [facility] [place], CHEST EXPIRATION ONLY, 07/15/2018. . FINDINGS: A single frontal expiratory view of the chest was performed. The lungs are symmetrically aerated and clear. No evidence of pneumothorax. Mediastinal structures are in the midline. CONCLUSION: Negative examination. Electronically signed by: Jamie Jacobs MD 07/16/2018 5:18 AM EDT
[2018-07-16] MEDS: Gabapentin 300 MG Capsule PO SCH (08:09)
[2018-07-16] MEDS: amLODIPine 5 MG Tablet PO SCH (08:09)
[2018-07-16] MEDS: Fenofibrate 145 MG Tablet PO SCH (08:09)
[2018-07-16] MEDS: Metoprolol Tartrate 50 MG Tablet PO SCH (08:09)
[2018-07-16] MEDS: Morphine Sulfate 30 MG IR Tablet PO PRN (08:12)
[2018-07-16] MEDS: Insulin NovoLOG Aspart Correctional Sugar Inj SQ SCH (08:12)
== END 2018-07-16 11:19 | disposition home or self-care (01) ==
LOC: HCIN 13:15 → EDSTATUS 07-14 06:30
PROVIDERS: ADMIT Hospitalist; ATTEND Hospitalist
PROC: COLONOS (2018-07-14 08:57)